=== PATIENT | male | born 1950 | race Caucasian/White ===

== ENCOUNTER 2021-03-26 07:27 | Emergency (ER) | payer OTHER ==
[~2021-03-26] VITALS: Ht 182.9 cm; Wt 127.0 kg
[2021-03-26 08:08] LABS: Basophils # (auto) 0.2 10 ^3/uL (0-0.2); Basophils % (auto) 2.4 % (0.0-2.0); Eosinophils # (auto) 0.2 10 ^3/uL (0-0.8); Eosinophils % (auto) 2.1 % (0.0-7.0); Hematocrit 46.6 % (41.0-53.0); Hemoglobin 16.1 g/dL (13.5-17.5); Lymphocytes # (auto) 1.7 10 ^3/uL (0.4-5.4); Lymphocytes % (auto) 17.9 % (10.0-50.0); Mean Corpuscular Hemoglobin 31.7 pg (28.0-32.0); Mean Corpuscular Hgb Conc. 34.6 g/dL (32.0-36.0); Mean Corpuscular Volume 91.5 fL (80.0-100.0); Monocytes # (auto) 0.5 10 ^3/uL (0-1.3); Monocytes % (auto) 5.5 % (0.0-12.0); Neutrophils # (auto) 6.8 10 ^3/uL (1.6-8.6); Neutrophils % (auto) 72.1 % (37.0-80.0); Nucleated Red Blood Cells % 0.1 %; Red Blood Cells 5.09 10^6/uL (4.5-5.90); Red Cell Distribution Width 13.9 % (11.8-14.3); White Blood Cell 9.4 10^3/uL (4.4-10.8)
[2021-03-26 08:15] LABS: Albumin 3.3 g/dL (3.4-5.0); Calcium 9.4 mg/dL (8.5-10.1); Potassium 4.1 mmol/L (3.5-5.1)
[2021-03-26 08:20] LABS: BUN/Creatinine Ratio 9.6; Bilirubin, Total 0.6 mg/dL (0.2-1.0)
[2021-03-26 08:28] LABS: Urine Bacteria NONE SEEN /hpf (None Seen); Urine Blood Negative /uL (Negative); Urine Mucus FEW (None Seen); Urine WBC 1 /hpf (0 - 3)
[2021-03-26] MEDS ORDERED: HYDROcodone-ACET 10/325MG TAB PO ONE (09:15)
[2021-03-26 09:45] VITALS: BP 155/107
== END 2021-03-26 09:36 | disposition home or self-care (01) ==
LOC: ER 07:27
DX: G89.4 Chronic pain syndrome (principal); R10.32 Left lower quadrant pain; E46 Unspecified protein-calorie malnutrition; I10 Essential (primary) hypertension; E11.9 Type 2 diabetes mellitus without complications; Z68.38 Body mass index [BMI] 38.0-38.9, adult
CPT/HCPCS: 36415; 80053; 81001; 85025

== ENCOUNTER 2023-05-26 08:32 | Inpatient (IN) | payer OTHER ==
[~2023-05-26] VITALS: Ht 182.9 cm; Wt 39.6 kg
[~2023-05-26 08:32] MED LIST: APIX5TAB PO; ATOR-47 PO; DULO60CA41 PO; GABA-1250 PO; INSU1INJ15 SC; INSUINJ2 SC; LEVE500T3 PO; LISI20TA56 PO; METF-372 PO; METO-158 PO; NIFE1TAB31 PO; OXYC15TA77 PO; PANT40TA2 PO; PROP40TA6 PO; TADA5TAB PO; TAMS0.4C36 PO
[2023-05-26 09:08] LABS: Basophils # (auto) 0.1 10 ^3/uL (0-0.2); Basophils % (auto) 0.8 % (0.0-2.0); Eosinophils # (auto) 0.2 10 ^3/uL (0-0.8); Hemoglobin 11.5 g/dL (13.5-17.5); Lymphocytes # (auto) 1.1 10 ^3/uL (0.4-5.4); Monocytes # (auto) 0.9 10 ^3/uL (0-1.3); Monocytes % (auto) 8.3 % (0.0-12.0)
[2023-05-26 09:09] LABS: Eosinophils % (auto) 1.9 % (0.0-7.0); Hematocrit 36.1 % (41.0-53.0); Lymphocytes % (auto) 10.5 % (10.0-50.0); Mean Corpuscular Hemoglobin 25.8 pg (28.0-32.0); Mean Corpuscular Volume 80.7 fL (80.0-100.0); Neutrophils # (auto) 8.4 10 ^3/uL (1.6-8.6); Neutrophils % (auto) 78.5 % (37.0-80.0); Red Blood Cells 4.47 10^6/uL (4.5-5.90); Red Cell Distribution Width 16.6 % (11.8-14.3); White Blood Cell 10.7 10^3/uL (4.4-10.8)
[2023-05-26 09:25] LABS: INR 1.12 (0.9-1.15); Partial Thromboplastin Time 31.6 SEC (24.5-34.5); Prothrombin Time 11.7 sec (9.3-11.8)
[2023-05-26 09:27] LABS: Alanine Aminotransferase 11 U/L (7-40); Alkaline Phosphatase 155 U/L (46-116); Anion Gap 5 (5-15); Aspartate Aminotransferase 10 U/L (13-40); BUN/Creatinine Ratio 12.8 (10.0-20.0); Bilirubin, Total 0.7 mg/dL (0.2-1.0); Blood Urea Nitrogen 17 mg/dL (9-23); Calcium 8.9 mg/dL (8.5-10.1); Carbon Dioxide 28 mmol/L (20-30); Chloride 108 mmol/L (98-107); Glucose 284 mg/dL (74-106); Potassium 5.2 mmol/L (3.5-5.1); Sodium 141 mmol/L (136-145); Total Protein 5.7 g/dL (5.7-8.2)
[2023-05-26] MEDS ORDERED: METOPROLOL TARTRATE 50 MG TAB PO ONE (12:30)
[2023-05-26] MEDS ORDERED: FUROSEMIDE 40 MG/4 ML VIAL IV ONE ×2 (12:30→13:45)
[2023-05-26 13:30] VITALS: BP 98/58; TEMP 97.7
[2023-05-26] MEDS ORDERED: ONDANSETRON HCL 4 MG/2 ML VIAL IV PRN (13:30)
[2023-05-26] MEDS ORDERED: DEXTROSE (50%) 50ML SYRG IV PRN (13:30)
[2023-05-26] MEDS ORDERED: NITROGLYCERIN 0.4 MG SL TAB SL PRN (13:30)
[2023-05-26] MEDS ORDERED: OXYCODONE W/ ACETAMINOPHEN 5/325MG TABLET PO PRN (13:30)
[2023-05-26] MEDS ORDERED: ACETAMINOPHEN 325 MG TAB PO PRN (13:30)
[2023-05-26] MEDS ORDERED: MORPHINE SULFATE INJ 2 MG/ml SYRG IV PRN (13:30)
[2023-05-26 13:31] VITALS: PULSE 71; RESP 20; O2SAT 96
[2023-05-26] MEDS ORDERED: InsuLIN REG 1unit/0.01ml Soln (100units/ml) SC SCH (17:00)
[2023-05-26] MEDS ORDERED: ACCU-CHEK COMFORT CURVE STRIP VI SCH (17:00)
[2023-05-26] MEDS ORDERED: FUROSEMIDE 40 MG/4 ML VIAL IV SCH (18:00)
[2023-05-26] MEDS ORDERED: DULoxetine HCL 30 MG CAP PO SCH (22:00)
[2023-05-26] MEDS ORDERED: levETIRAcetam 500 MG TAB PO SCH (22:00)
[2023-05-26] MEDS ORDERED: INSULIN NPH Isophane (HUMAN) 1unit/0.01ml Susp(100units/ml) SC SCH (22:00)
[2023-05-26] MEDS ORDERED: GABAPENTIN 300 MG CAP PO SCH (22:00)
[2023-05-26] MEDS ORDERED: NIFEdipine ER 30 MG TAB PO SCH (22:00)
[2023-05-26] MEDS ORDERED: METOPROLOL TARTRATE 50 MG TAB PO SCH (22:00)
[2023-05-26] MEDS ORDERED: APIXABAN 5 MG TAB PO SCH (22:00)
[2023-05-27] MEDS ORDERED: PANTOPRAZOLE 40 MG TAB PO SCH (10:00)
[2023-05-27] MEDS ORDERED: TAMSULOSIN HYDROCHLORIDE 0.4 MG CAP PO SCH (10:00)
[2023-05-27] MEDS ORDERED: ATORVASTATIN 20 MG TAB PO SCH (10:00)
[2023-05-27] MEDS ORDERED: LISINOPRIL 20 MG TAB PO SCH (10:00)
== END 2023-05-26 18:13 | disposition left against medical advice (07) | DRG 291 ==
LOC: ER 08:32 → TELE 13:32 → UNDODEPER 20:19
PROVIDERS: ADMIT Internal Medicine Geriatric Medicine; ATTEND Internal Medicine Geriatric Medicine
DX: I11.0 Hypertensive heart disease with heart failure (principal); I50.43 Acute on chronic combined systolic (congestive) and diastolic (congestive) heart failure; E11.9 Type 2 diabetes mellitus without complications; I48.91 Unspecified atrial fibrillation; Z53.21 Procedure and treatment not carried out due to patient leaving prior to being seen by health care provider; G89.29 Other chronic pain
CPT/HCPCS: 36415; 71046; 80053; 82962; 83880; 84484; 85025; 85610; 85730; 93005; 99291; G0378

== ENCOUNTER 2024-06-14 09:11 | Inpatient (IN) | payer OTHER ==
[~2024-06-14] VITALS: Ht 182.9 cm; Wt 125.0 kg
[~2024-06-14 09:11] MED LIST changes: -TADA5TAB PO; +TADA5TAB16 PO; -TAMS0.4C36 PO; +TAMS0.4C39 PO
--- NOTE | 2024-06-14 09:58 | ECG ---
[facility] Test Date: 2024-06-14 Test Time: 09:40:06 Pat Name: DENA ROSALES Department: ER Room: Gender: M Acquisition Advisor: GP : [id number] Requested By: NICK JHAVERI Order Number: [id number] Reading MD: Measurements Intervals [place] Rate: 112 P: 0 VA: 0 QRS: 111 QRSD: 91 T: 6 QT: 343 QTc: 469 Interpretive Statements Atrial fibrillation Anterior infarct, old Minimal ST depression, inferior leads Minimal ST elevation, lateral leads Baseline wander in lead(s) V1 Please click the below link to view image of tracing.
[2024-06-14 10:46] LABS: Urine Bacteria None Seen /hpf (None Seen)
[2024-06-14 11:16] LABS: Urine Blood Negative /uL (Negative); Urine Clarity Clear (Clear); Urine Color Light-Yellow (Yellow); Urine Protein, UAD TRACE (Negative); Urine Specific Gravity 1.033 (1.001-1.035); Urine Urobilinogen 2 mg/dL (Negative); Urine WBC <1 /hpf (0 - 3)
[2024-06-14 11:23] LABS: Amphetamine Screen, Urine Neg (NEGATIVE); Barbiturate Scree,Urine Neg (NEGATIVE); Benzodiazephine Screen, Urine Neg (NEGATIVE); Cocaine Screen, Urine Neg (NEGATIVE); Opiate Scree,Urine Neg (NEGATIVE)
[2024-06-14 11:24] LABS: Cannabinoid Screen, Urine Neg (NEGATIVE); Phencyclidine Screen, Urine Neg (NEGATIVE)
[2024-06-14] MEDS: PANTOPRAZOLE 40 MG/10 ML VIAL INJ IV ONE (11:30)
--- NOTE | 2024-06-14 11:49 | DVH ---
Exam: CT CT AB PEL WO CON-NO ORAL OR IV History: mid abdominal pain Comparison Study: ECID on DOS: 08/26/22 Technique: Multidetector spiral CT of the abdomen and pelvis was performed from lung bases to pubic symphysis. Imaging was performed without IV contrast. Axial, coronal and sagittal multiplanar reform ats were obtained from the axial data set by the technologist. Radiation dose : Abdomen/Pelvis: CTDIvol 24 mGy, DLP 1434.83 mGy*cm. Findings: Evaluation of solid organs is limited due to lack of intravenous contrast use. Lung Bases: Small left pleural effusion. Atelectasis and scarring in the lung bases. Trace pericard ial effusion. Mild cardiomegaly. Liver: The liver is normal in size. No focal lesions. Gallbladder and biliary Tree: Sludge and stones in the gallbladder. Spleen: Unremarkable Pancreas: The pancreas is grossly normal in appearance. Adrenal Glands: Unremarkable Kidneys: Right renal cysts. No hydronephrosis or nephrolithiasis. Extrarenal left renal pelvis. Calci fication adjacent to the distal left ureter not felt to be a stone but more likely a vascular calcifi cation. Bladder: Grossly unremarkable for degree of distention. Bowel: The stomach is grossly normal in appearance. Small bowel and colon are normal in caliber and d istribution. Normal appendix is visualized in the right lower quadrant without findings of appendici tis. Ascites: Absent Lymphadenopathy: No mesenteric, retroperitoneal or periportal lymphadenopathy. Abdominal wall and Mesentery: Unremarkable. Vasculature: The visualized abdominal aorta is normal in size and caliber. There is atherosclerotic calcification of the aorta and its branches. Evaluation of abdominal and pelvic vessels is limited d ue to lack of intravenous contrast. Pelvic Organs: Unremarkable Musculoskeletal: Postsurgical and degenerative changes. IMPRESSION: 1. No acute abdominal or pelvic findings. Cholelithiasis. Right renal cyst. Small left pleural effusi on. Consider dedicated chest CT. Radiation optimization: All CT scans at this facility use at least one of these dose optimization bella hniques: Automated exposure control mA and/or kV adjustment per patient size (includes targeted exams where dose is matched to clinical indication) or iterative reconstruction. HS:Y
[2024-06-14 12:00] LABS: Lactic Acid w/Reflex 3.1 mmol/L (0.4-2.0)
[2024-06-14 12:02] LABS: Acetaminophen < 2.0 UG/ML (10.0-20.0); Salicylate < 3.0 mg/dL (-30)
--- NOTE | 2024-06-14 12:05 | ED.PDOC ---
History of Present Illness HPI Comments 74 year old male presents to the ED with chief complaint of abdominal pain and possible Oxycodone OD. Patient's reports that the patient had been restless all night, uncomfortable, and sweaty, however, she had found an empty bottle of Oxycodone this morning right under the bed and the patient is not sure how many pills he had taken of it last night. Patient relays that he also has been experiencing abdominal pain with associated urinary frequency since last night. Patient's BG was noted to be 350 in triage and notes she provided the patient Insulin this morning. Patient denies any fever, chills, N/V/D, chest pain, or SOB. Chief Complaint: Diabetes Time Seen by MD: 12:00 Primary Care Provider: JESUS Reviewed Notes: Nurses Notes, Medications, Allergies Allergies: Coded Allergies: NO KNOWN ALLERGIES (Unverified , 03/26/21) Home Meds Active Scripts Metoprolol Tartrate (Metoprolol Tartrate) 50 Mg Tab, 50 MG PO BID for 30 Days, #60 TAB 3 Refills Prov:MARISOL CURRAN MD 08/26/22 Reported Medications Oxycodone HCl (Oxycontin) 15 Mg Tab, 1 TAB PO [id number] PRN for PAIN SCALE 7 THRU 10 08/26/22 Insulin Regular (Human) (Humulin R U-500 Kwikpen) 500 Unit/Ml Inj, 500 UNIT SC ACHS, INJ 08/25/22 Insulin NPH (Human) (Isophane) (Humulin N) 100 Unit/Ml Inj, 60 UNITS SC BID, INJ 08/25/22 Pantoprazole Sodium Sesquihydr (Protonix) 40 Mg Tab, 20 MG PO DAILY, #30 TAB 08/25/22 Duloxetine Hcl (Cymbalta) 60 Mg Cap, 60 MG PO BID, CAP 08/25/22 Tadalafil (Tadalafil) 5 Mg Tab, 1 TAB PO DAILY 08/25/22 Apixaban Base (ELIQUIS) 5 Mg Tab, 1 TAB PO BID 08/25/22 Levetiracetam (Levetiracetam) 500 Mg Tab, 1 TAB PO BID 08/25/22 Gabapentin (Gabapentin) 300 Mg Cap, 1 CAP PO BID 08/25/22 Tamsulosin Hcl (Tamsulosin Hcl) 0.4 Mg Cap, 1 CAP PO DAILY 08/25/22 Atorvastatin Calcium (ATORVASTATIN CALCIUM) 80 Mg Tab, 1 TAB PO DAILY 08/25/22 Lisinopril (Lisinopril) 20 Mg Tab, 1 TAB PO DAILY 08/25/22 Nifedipine (Nifedipine Er) 30 Mg Tab, 1 TAB PO BID 08/25/22 Propranolol HCl (Propranolol Hydrochloride) 40 Mg Tab, 1 TAB PO BID 08/25/22 Metformin Hydrochloride (Metformin Hcl) 1,000 Mg Tab, 1 TAB PO BID 08/25/22 Information Source: Patient, Spouse Mode of Arrival: Wheelchair Severity: Moderate Timing: Hours Duration: Since onset Prehospital treatment: None Past Medical History PAST MEDICAL HISTORY: AFIB, CAD, DM, High Lipids, HTN Surgical History: PTCA Surgical History (Other): Neck surgery, Spine stimulator Family History Family History: Reviewed,noncontributory to illness Social History Smoker: Non-Smoker Alcohol: Denies ETOH Use Drugs: Denies Drug Use Lives In: Home Constitutional: reports: sweats, others (restless); denies: chills, diaphoresis, fatigue, fever, malaise, weakness EENTM: denies: blurred vision, double vision, ear bleeding, ear discharge, ear drainage, ear pain, ear ringing, eye pain, eye redness, hearing loss, mouth pain, mouth swelling, nasal discharge, nose bleeding, nose congestion, nose pain, photophobia, tearing, throat pain, throat swelling, voice changes, others Respiratory: denies: cough, hemoptysis, orthopnea, SOB at rest, shortness of breath, SOB with excertion, stridor, wheezing, others Cardiovascular: denies: chest pain, dizzy spells, diaphoresis, Dyspnea on exertion, edema, irregular heart beat, left arm pain, lightheadedness, palpitations, PND, syncope, others Gastrointestinal: reports: abdominal pain; denies: abdomen distended, blood streaked bowels, constipated, diarrhea, dysphagia, difficulty swallowing, hematemesis, melena, nausea, poor appetite, poor fluid intake, rectal bleeding, rectal pain, vomiting, others Genitourinary: reports: frequency; denies: burning, dysuria, flank pain, hematuria, incontinence, penile discharge, penile sore, pain, testicle pain, testicle swelling, urgency, others Neurological: denies: dizziness, fainting, headache, left sided numbness, left sided weakness, numbness, paresthesia, pre-existing deficit, right sided numbness, right sided weakness, seizure, speech problems, tingling, tremors, weakness, others Musculoskeletal: denies: back pain, gout, joint pain, joint swelling, muscle pain, muscle stiffness, neck pain, others Integumetry: denies: bruises, change in color, change in hair/nails, dryness, laceration, lesions, lumps, rash, wounds, others Allergic/Immunocompromised: denies: Difficulty Healing, Frequent Infections, Hives, Itching, others Hematologic/Lymphatic: denies: anemia, blood clots, easy bleeding, easy bruising, swollen glands, others Endocrine: denies: excessive hunger, excessive sweating, excessive thirst, excessive urination, flushing, intolerance to cold, intolerance to heat, unexplained weight gain, unexplained weight loss, others Psychiatric: denies: anxiety, bipolar disorder, depression, hopeless, panic disorder, schizophrenia, sleepless, suicidal, others All Other Systems: Reviewed and Negative Physical Exam General Appearance: No Apparent Distress, Obese HEENT: Normal ENT Inspection, PERRL/EOMI Neck: Full Range of Motion, Normal Inspection Respiratory: Lungs Clear, No Accessory Muscle Use, No Respiratory Distress, Normal Breath Sounds Cardiovascular: No Edema, No JVD, Regular Rate/Rhythm Breast Exam: Deferred Gastrointestinal: Soft, Tenderness (Mid abdominal tenderness to palpation. No rebound or guarding.) Genitalia: Deferred Pelvic: Deferred Rectal: Deferred Extremities: Normal inspection, Normal range of motion, Non-tender, Pedal edema Neurologic: Alert (Oriented x4), No Motor Deficits, Normal Affect, Normal Mood, Other (Moves all extremities, no gross focal deficit) Cerebellar Function: NOT DONE Reflexes: NOT DONE Skin: Dry, Normal Color, Warm Lymphatic: NOT DONE Was a procedure done? Was a procedure done?: No Differential Dx Considerations may include: Medication overdose, infection such as UTI, electrolyte imbalance, viral syndrome, cardiac event, among others X-Ray, Labs, Meds, VS Vital Signs Date Time Temp Pulse Resp B/P (MAP) Pulse Ox O2 Delivery O2 Flow Rate FiO2 06/14/24 11:17 106 16 95 Room Air 06/14/24 11:17 98.7 106 16 145/80 (101) 94 98.7 12/9/24 09:40 112 06/14/24 09:16 98.6 124 18 153/101 (118) 96 Lab Test 06/14/24 12:59 06/14/24 11:08 06/14/24 09:38 06/14/24 09:35 Range/Units Lactic Acid Level 3.3 *H 3.1 *H 0.4-2.0 mmol/L Troponin I High Sensitivity 6 6 </=54 ng/L White Blood Count 13.0 H 4.4-10.8 10^3/uL Red Blood Count 5.22 4.5-5.90 10^6/uL Hemoglobin 13.1 L 13.5-17.5 g/dL Hematocrit 40.4 L 41.0-53.0 % Mean Corpuscular Volume 77.2 L 80.0-100.0 fL Mean Corpuscular Hemoglobin 25.1 L 28.0-32.0 pg Mean Corpuscular Hemoglobin Concent 32.5 32.0-36.0 g/dL Red Cell Distribution Width 18.2 H 11.8-14.3 % Platelet Count 253 140-450 10^3/uL Mean Platelet Volume 8.3 6.9-10.8 fL Neutrophils (%) (Auto) 86.3 H 37.0-80.0 % Lymphocytes (%) (Auto) 7.1 L 10.0-50.0 % Monocytes (%) (Auto) 5.9 0.0-12.0 % Eosinophils (%) (Auto) 0.1 0.0-7.0 % Basophils (%) (Auto) 0.6 0.0-2.0 % Neutrophils # (Auto) 11.2 H 1.6-8.6 10 ^3/uL Lymphocytes # (Auto) 0.9 0.4-5.4 10 ^3/uL Monocytes # (Auto) 0.8 0-1.3 10 ^3/uL Eosinophils # (Auto) 0 0-0.8 10 ^3/uL Basophils # (Auto) 0.1 0-0.2 10 ^3/uL Nucleated Red Blood Cells 0.1 % Sodium Level 138 136-145 mmol/L Potassium Level 4.9 3.5-5.1 mmol/L Chloride Level 103 98-107 mmol/L Carbon Dioxide Level 27 20-31 mmol/L Anion Gap 8 5-15 Blood Urea Nitrogen 14 9-23 mg/dL Creatinine 1.25 0.700-1.30 mg/dL Glomerular Filtration Rate Calc 61 >90 mL/min BUN/Creatinine Ratio 11.2 10.0-20.0 Serum Glucose 355 H 74-106 mg/dL Calcium Level 9.8 8.7-10.4 mg/dL Total Bilirubin 1.0 0.2-1.0 mg/dL Aspartate Amino Transferase (AST) 14 13-40 U/L Alanine Aminotransferase (ALT) 12 7-40 U/L Alkaline Phosphatase 104 46-116 U/L B-Type Natriuretic Peptide 390.31 0-100 pg/mL Total Protein 6.9 5.7-8.2 g/dL Albumin 4.4 3.2-4.8 g/dL Salicylates Level < 3.0 -30 mg/dL Acetaminophen Level < 2.0 L 10.0-20.0 UG/ML Urine Color Light-yellow Yellow Urine Clarity Clear Clear Urine pH 7.0 5.0-9.0 Urine Specific [place] 1.033 1.001-1.035 Urine Protein Trace H Negative Urine Ketones 1+ H Negative Urine Blood Negative Negative /uL Urine Nitrite Negative Negative Urine Bilirubin Negative Negative Urine Urobilinogen 2 H Negative mg/dL Urine Leukocyte Esterase Negative Negative /uL Urine RBC 1 0 - 3 /hpf Urine WBC <1 0 - 3 /hpf Urine Squamous Epithelial Cells Few <5 /hpf Urine Bacteria None seen None Seen /hpf Urine Glucose 4+ H Normal mg/dL Urine Opiates Screen Neg NEGATIVE Urine Fentanyl Screen Neg NEGATIVE Urine Barbiturates Screen Neg NEGATIVE Urine Phencyclidine Screen Neg NEGATIVE Urine Amphetamines Screen Neg NEGATIVE Urine Benzodiazepines Screen Neg NEGATIVE Urine Cocaine Screen Neg NEGATIVE Urine Cannabinoids Screen Neg NEGATIVE POC Glucose 350 H 70-106 mg/dl Current Medications Medications (Trade) Dose Ordered Sig/Stephen Route Start Time Stop Time Status Last Admin Pantoprazole Sodium (Protonix) 40 mg ONCE ONCE IV 06/14/24 10:45 06/14/24 10:46 DC 06/14/24 11:30 CT Abd/Pel: Findings: Evaluation of solid organs is limited due to lack of intravenous contrast use. Lung Bases: Small left pleural effusion. Atelectasis and scarring in the lung bases. Trace pericardial effusion. Mild cardiomegaly. Liver: The liver is normal in size. No focal lesions. Gallbladder and biliary Tree: Sludge and stones in the gallbladder. Spleen: Unremarkable Pancreas: The pancreas is grossly normal in appearance. Adrenal Glands: Unremarkable Kidneys: Right renal cysts. No hydronephrosis or nephrolithiasis. Extrarenal left renal pelvis. Calcification adjacent to the distal left ureter not felt to be a stone but more likely a vascular calcification. Bladder: Grossly unremarkable for degree of distention. Bowel: The stomach is grossly normal in appearance. Small bowel and colon are normal in caliber and distribution. Normal appendix is visualized in the right lower quadrant without findings of appendicitis. Ascites: Absent Lymphadenopathy: No mesenteric, retroperitoneal or periportal lymphadenopathy. Abdominal wall and Mesentery: Unremarkable. Vasculature: The visualized abdominal aorta is normal in size and caliber. There is atherosclerotic calcification of the aorta and its branches. Evaluation of abdominal and pelvic vessels is limited due to lack of intravenous contrast. Pelvic Organs: Unremarkable Musculoskeletal: Postsurgical and degenerative changes. IMPRESSION: 1. No acute abdominal or pelvic findings. Cholelithiasis. Right renal cyst. Small left pleural effusion. Consider dedicated chest CT. X-Ray, Labs, Meds, VS Comment 74-year-old male with a history of hypertension, hyperlipidemia, AFib, CAD, diabetes brought in by spouse to evaluate for possible overdose due to diaphoresis and restlessness last night Vitals remarkable for heart rate 124, BP 153/101 Exam remarkable for mid abdominal tenderness to palpation. No rebound or guarding. Rhythm strip independently interpreted by me: Sinus tach, rate 112, no ectopy. CT abdomen and pelvis unremarkable CBC remarkable for WBC 13, differential shows left shift, CMP remarkable for glucose 355, UA remarkable for 4+ glucose Lactate 3.1, repeat 3.3 Patient treated with the following in the ED: 1 L 0.9 normal saline IV bolus, regular insulin 10 units IV, Protonix 40 mg IV, Zosyn 4.5 g IV, vancomycin 1 g IV On re-evaluation, patient is resting comfortably. Heart rate improving. Plan is to admit the patient for lactate trend, IV hydration, glucose control and further evaluation to rule out infection/sepsis. Images Reviewed?: Images reviewed and evaluated by me Time of 1ST Reevaluation: 13:00 Reevaluation 1ST: Unchanged Patient Education/Counseling: Diagnosis, Treatment Family Education/Counseling: Diagnosis, Treatment Sepsis Sepsis Reasesment Focused Exam Sepsis focused exam: focus exam completed (Heart rate improving, blood pressure stable. 30 cc/kilo bolus not administered due to history of CHF), time: (1409) Departure 1 Departure Time of Disposition: 14:08 Impression: Primary Impression: Hyperglycemia Additional Impression: Sepsis Qualified Codes: A41.9 - Sepsis, unspecified organism Disposition: 09 ADMITTED INPATIENT Admit to: Tele Condition: Guarded Critical Care Note Critical Care Time?: Yes (35 min-critical care time only) Critical care comment: Critical care time including multiple bedside re-evaluations, review of lab and imaging studies, and discussion of the case with the admitting provider. Patient is high risk for hemodynamic/metabolic decompensation. Stability Stability form required: No Heart Score Heart Score: Heart Score Response (Comments) Value History N/A 0 EKG N/A 0 Age N/A 0 Risk Factors N/A 0 Troponin N/A 0 Total 0 I personally scribed for NILAM MUHAMMAD MD ([email or web address]) on 06/14/24 at 12:05. Electronically submitted by Pineda Dennis ([email or web address]). I personally scribed for NILAM MUHAMMAD MD ([email or web address]) on 06/14/24 at 12:46. Electronically submitted by Pineda Dennis ([email or web address]). NILAM MUHAMMAD MD Jun 14, 2024 12:05
[2024-06-14 12:07] LABS: Alanine Aminotransferase 12 U/L (7-40); Albumin 4.4 g/dL (3.2-4.8); Alkaline Phosphatase 104 U/L (46-116); Anion Gap 8 (5-15); Aspartate Aminotransferase 14 U/L (13-40); BUN/Creatinine Ratio 11.2 (10.0-20.0); Blood Urea Nitrogen 14 mg/dL (9-23); Calcium 9.8 mg/dL (8.7-10.4); Carbon Dioxide 27 mmol/L (20-31); Chloride 103 mmol/L (98-107); Potassium 4.9 mmol/L (3.5-5.1); Sodium 138 mmol/L (136-145)
[2024-06-14 12:08] LABS: Total Protein 6.9 g/dL (5.7-8.2)
[2024-06-14 12:13] LABS: Glucose 355 mg/dL (74-106)
[2024-06-14 12:30] LABS: Basophils # (auto) 0.1 10 ^3/uL (0-0.2); Basophils % (auto) 0.6 % (0.0-2.0); Eosinophils # (auto) 0 10 ^3/uL (0-0.8); Eosinophils % (auto) 0.1 % (0.0-7.0); Hematocrit 40.4 % (41.0-53.0); Hemoglobin 13.1 g/dL (13.5-17.5); Lymphocytes # (auto) 0.9 10 ^3/uL (0.4-5.4); Lymphocytes % (auto) 7.1 % (10.0-50.0); Mean Corpuscular Hemoglobin 25.1 pg (28.0-32.0); Mean Corpuscular Hgb Conc. 32.5 g/dL (32.0-36.0); Mean Corpuscular Volume 77.2 fL (80.0-100.0); Monocytes # (auto) 0.8 10 ^3/uL (0-1.3); Monocytes % (auto) 5.9 % (0.0-12.0); Neutrophils # (auto) 11.2 10 ^3/uL (1.6-8.6); Neutrophils % (auto) 86.3 % (37.0-80.0); Nucleated Red Blood Cells % 0.1 %; Platelet Count (auto) 253 10^3/uL (140-450); Red Blood Cells 5.22 10^6/uL (4.5-5.90); Red Cell Distribution Width 18.2 % (11.8-14.3)
--- NOTE | 2024-06-14 15:30 | DVH ---
CT brain without contrast CLINICAL INDICATION: Altered mental status FINDINGS: The study was performed in a multidetector scanner. This study performed taking axial imag es from the skull base up to the vertex. Both brain and bone windows are photographed. Dose lowering techniques have been used including automated exposure control and adjustment of mA and /or KV according to patient size. No areas of hemorrhage or edema in the brain parenchyma Cortical sulcal markings are prominent. Symmetric low-density changes in the periventricular white matter. No hydrocephalus. No midline shift. No extra-axial fluid collections On bone windows paranasal sinuses are clear. No lytic or blastic lesions of bone IMPRESSION: 1. No acute intracranial pathology. 2. Atrophy with periventricular leukoencephalopathy Computed Tomographic Radiation Dosimetry Report: Total CTDI vol = 69 mGy Total DLP = 1358 mGy-cm All CT scans at this medical facility are performed using dose modulation techniques as appropriate t o a performed exam including the following: Automated exposure control was utilized; adjustment of the MA and/or KvP according to patient size; a nd use of iterative reconstruction technique.
--- NOTE | 2024-06-14 15:31 | DVH ---
Chest x-ray Technique: AP Comparison: 05/26/2023 CLINICAL INDICATION: Shortness of breath FINDINGS: Heart size is enlarged. Aorta is tortuous. No infiltrates or effusions. IMPRESSION: 1. No acute cardiopulmonary pathology
[2024-06-14] MEDS: InsuLIN REG 1unit/0.01ml Soln (100units/ml) IV ONE (16:00)
[2024-06-14] MEDS: SODIUM CHLORIDE 0.9% 1,000 ML IV ONE (16:02)
[2024-06-14] MEDS: VANCOMYCIN 1GM/250ML KIT 250 ML IV ONE (16:05)
[2024-06-14] MEDS ORDERED: MORPHINE SULFATE INJ 2 MG/ml SYRG IV PRN (16:45)
[2024-06-14] MEDS ORDERED: NITROGLYCERIN 0.4 MG SL TAB SL PRN (16:45)
--- NOTE | 2024-06-14 16:46 | DVHHP2 ---
History of Present Illness Reason for Visit: ALOC History of Present Illness 74-year-old male is brought to the emergency room by his due to altered level of consciousness Evaluation here showed possible sepsis with elevated white count and elevated lactic acid According to the the patient may have taken extra doses of Percocet that he takes for pain They deny fever chills No cough No nausea no vomiting no diarrhea Cardiovascular: AFIB, CAD, HTN Endocrine: Diabetes Review of Systems Neurological: Weakness Allergies: Coded Allergies: NO KNOWN ALLERGIES (Unverified , 03/26/21) Exam Vital Signs Vital Signs Date Time Temp Pulse Resp B/P (MAP) Pulse Ox O2 Delivery O2 Flow Rate FiO2 06/14/24 16:18 99.1 100 15 108/63 (78) 98 99.1 06/14/24 11:17 Room Air General Appearance: Alert, Oriented X3, Cooperative, No acute distress Respiratory: Clear to auscultation, Normal air movement Cardiovascular: Regular rate, Normal S1, Normal S2, No murmurs Abdominal: Normal bowel sounds, Soft, No tenderness Extremities: No edema Labs/Xrays Labs Test 06/14/24 16:09 06/14/24 15:25 06/14/24 12:59 06/14/24 11:08 Range/Units POC Glucose 235 H 70-106 mg/dl Troponin I High Sensitivity 8 </=54 ng/L Lactic Acid Level 3.3 *H 0.4-2.0 mmol/L White Blood Count 13.0 H 4.4-10.8 10^3/uL Red Blood Count 5.22 4.5-5.90 10^6/uL Hemoglobin 13.1 L 13.5-17.5 g/dL Hematocrit 40.4 L 41.0-53.0 % Mean Corpuscular Volume 77.2 L 80.0-100.0 fL Mean Corpuscular Hemoglobin 25.1 L 28.0-32.0 pg Mean Corpuscular Hemoglobin Concent 32.5 32.0-36.0 g/dL Red Cell Distribution Width 18.2 H 11.8-14.3 % Platelet Count 253 140-450 10^3/uL Mean Platelet Volume 8.3 6.9-10.8 fL Neutrophils (%) (Auto) 86.3 H 37.0-80.0 % Lymphocytes (%) (Auto) 7.1 L 10.0-50.0 % Monocytes (%) (Auto) 5.9 0.0-12.0 % Eosinophils (%) (Auto) 0.1 0.0-7.0 % Basophils (%) (Auto) 0.6 0.0-2.0 % Neutrophils # (Auto) 11.2 H 1.6-8.6 10 ^3/uL Lymphocytes # (Auto) 0.9 0.4-5.4 10 ^3/uL Monocytes # (Auto) 0.8 0-1.3 10 ^3/uL Eosinophils # (Auto) 0 0-0.8 10 ^3/uL Basophils # (Auto) 0.1 0-0.2 10 ^3/uL Nucleated Red Blood Cells 0.1 % Sodium Level 138 136-145 mmol/L Potassium Level 4.9 3.5-5.1 mmol/L Chloride Level 103 98-107 mmol/L Carbon Dioxide Level 27 20-31 mmol/L Anion Gap 8 5-15 Blood Urea Nitrogen 14 9-23 mg/dL Creatinine 1.25 0.700-1.30 mg/dL Glomerular Filtration Rate Calc 61 >90 mL/min BUN/Creatinine Ratio 11.2 10.0-20.0 Serum Glucose 355 H 74-106 mg/dL Calcium Level 9.8 8.7-10.4 mg/dL Total Bilirubin 1.0 0.2-1.0 mg/dL Aspartate Amino Transferase (AST) 14 13-40 U/L Alanine Aminotransferase (ALT) 12 7-40 U/L Alkaline Phosphatase 104 46-116 U/L B-Type Natriuretic Peptide 390.31 0-100 pg/mL Total Protein 6.9 5.7-8.2 g/dL Albumin 4.4 3.2-4.8 g/dL Salicylates Level < 3.0 -30 mg/dL Acetaminophen Level < 2.0 L 10.0-20.0 UG/ML Test 06/14/24 09:38 Range/Units Urine Color Light-yellow Yellow Urine Clarity Clear Clear Urine pH 7.0 5.0-9.0 Urine Specific [place] 1.033 1.001-1.035 Urine Protein Trace H Negative Urine Ketones 1+ H Negative Urine Blood Negative Negative /uL Urine Nitrite Negative Negative Urine Bilirubin Negative Negative Urine Urobilinogen 2 H Negative mg/dL Urine Leukocyte Esterase Negative Negative /uL Urine RBC 1 0 - 3 /hpf Urine WBC <1 0 - 3 /hpf Urine Squamous Epithelial Cells Few <5 /hpf Urine Bacteria None seen None Seen /hpf Urine Glucose 4+ H Normal mg/dL Urine Opiates Screen Neg NEGATIVE Urine Fentanyl Screen Neg NEGATIVE Urine Barbiturates Screen Neg NEGATIVE Urine Phencyclidine Screen Neg NEGATIVE Urine Amphetamines Screen Neg NEGATIVE Urine Benzodiazepines Screen Neg NEGATIVE Urine Cocaine Screen Neg NEGATIVE Urine Cannabinoids Screen Neg NEGATIVE Assessment/Plan Assessment/Plan Metabolic encephalopathy Sepsis Leukocytosis Rule out infection History of coronary artery disease Atrial fibrillation Type 2 diabetes, uncontrolled Hypertension Morbid obesity Chronic low back pain Chronic pain Plan Admit to telemetry CT scan of the head is negative Chest x-ray is negative for pneumonia UA is negative for UTI Get blood cultures Broad-spectrum antibiotics empirically Monitor closely Discussed with the at the bedside Full code Plan discussed with: Patient, Spouse My Orders Orders - MARISOL CURRAN MD Procedure Category Date Status Time Chest Xray 1 View XY 06/14/24 Resulted 14:[address] 06/14/24 Resulted 14:44 Date of Service: Jun 14, 2024 Billing Provider: MARISOL CURRAN MD Common Visit Codes: NOT BILLABLE MARISOL CURRAN MD Jun 14, 2024 16:46
[2024-06-14] MEDS: PIPERACILLIN-TAZO 4.5GM 100 ML IV ONE (16:48)
[2024-06-14] MEDS ORDERED: ONDANSETRON HCL 4 MG/2 ML VIAL IV PRN (17:00)
[2024-06-14] MEDS ORDERED: DEXTROSE (50%) 50ML SYRG IV PRN (17:00)
[2024-06-14] MEDS ORDERED: InsuLIN REG 1unit/0.01ml Soln (100units/ml) SC SCH ×2 (17:00→22:00)
[2024-06-14] MEDS ORDERED: ACCU-CHEK COMFORT CURVE STRIP VI SCH (17:00)
[2024-06-14] MEDS ORDERED: ACETAMINOPHEN 325 MG TAB PO PRN (17:00)
[2024-06-14] MEDS ORDERED: HYDROcodone-ACET 5/325MG TAB PO PRN (17:00)
[2024-06-14] MEDS ORDERED: TAMSULOSIN HYDROCHLORIDE 0.4 MG CAP PO SCH (18:00)
[2024-06-14 18:03] VITALS: BP 122/72; PULSE 105; RESP 20; TEMP 98.5; O2SAT 95
[2024-06-15] MEDS ORDERED: PANTOPRAZOLE 40 MG TAB PO SCH (06:00)
== END 2024-06-14 20:21 | disposition left against medical advice (07) | DRG 871 ==
LOC: ER 09:11 → TELE 16:40
PROVIDERS: ADMIT Internal Medicine Geriatric Medicine; ATTEND Internal Medicine Geriatric Medicine
DX: A41.9 Sepsis, unspecified organism (principal); G93.41 Metabolic encephalopathy; I25.10 Atherosclerotic heart disease of native coronary artery without angina pectoris; Z53.29 Procedure and treatment not carried out because of patient's decision for other reasons; E11.65 Type 2 diabetes mellitus with hyperglycemia; I48.91 Unspecified atrial fibrillation; E66.01 Morbid (severe) obesity due to excess calories; G89.29 Other chronic pain; I10 Essential (primary) hypertension; Z79.899 Other long term (current) drug therapy; Z68.37 Body mass index [BMI] 37.0-37.9, adult
CPT/HCPCS: 36415; 70450; 71045; 74176; 80053; 80307; 80329; 81001; 82962; 83605; 83880; 84484; 85025; 87040; 93005; 96365; 96368; 96375; 99291; G0378; J2470; J2543

== ENCOUNTER 2024-10-03 14:08 | Emergency (ER) | payer OTHER, MEDICAID ==
[~2024-10-03] VITALS: Ht 182.9 cm; Wt 136.0 kg
--- NOTE | 2024-10-03 14:41 | ED.PDOC ---
History of present illness HPI Comments 74 year old male accompanied by presents to the ED with chief complaint of hyperglycemia and hypertension. reports that the patient has been experiencing increasing fatigue, weakness, abdominal pain, dizziness, and frequent urination over the past 2 weeks. relays that the patient's blood glucose has been reading in the 390s daily along with blood pressure being very elevated despite medication being provided correctly. Patient denies any chest pain, SOB, N/V/D, or syncope. Chief Complaint: Hyperglycemia Time Seen by MD: 14:38 Primary Care Provider: JESUS History of present illness: Nurses Notes, Medications, Allergies Allergies: Coded Allergies: NO KNOWN ALLERGIES (Unverified , 03/26/21) Home Meds Active Scripts Metoprolol Tartrate (Metoprolol Tartrate) 50 Mg Tab, 50 MG PO BID for 30 Days, #60 TAB 3 Refills Prov:MARISOL CURRAN MD 08/26/22 Reported Medications Oxycodone HCl (Oxycontin) 15 Mg Tab, 1 TAB PO [id number] PRN for PAIN SCALE 7 THRU 10 08/26/22 Insulin Regular (Human) (Humulin R U-500 Kwikpen) 500 Unit/Ml Inj, 500 UNIT SC ACHS, INJ 08/25/22 Insulin NPH (Human) (Isophane) (Humulin N) 100 Unit/Ml Inj, 60 UNITS SC BID, INJ 08/25/22 Pantoprazole Sodium Sesquihydr (Protonix) 40 Mg Tab, 20 MG PO DAILY, #30 TAB 08/25/22 Duloxetine Hcl (Cymbalta) 60 Mg Cap, 60 MG PO BID, CAP 08/25/22 Tadalafil (Tadalafil) 5 Mg Tab, 1 TAB PO DAILY 08/25/22 Apixaban Base (ELIQUIS) 5 Mg Tab, 1 TAB PO BID 08/25/22 Levetiracetam (Levetiracetam) 500 Mg Tab, 1 TAB PO BID 08/25/22 Gabapentin (Gabapentin) 300 Mg Cap, 1 CAP PO BID 08/25/22 Tamsulosin Hcl (Tamsulosin Hcl) 0.4 Mg Cap, 1 CAP PO DAILY 08/25/22 Atorvastatin Calcium (ATORVASTATIN CALCIUM) 80 Mg Tab, 1 TAB PO DAILY 08/25/22 Lisinopril (Lisinopril) 20 Mg Tab, 1 TAB PO DAILY 08/25/22 Nifedipine (Nifedipine Er) 30 Mg Tab, 1 TAB PO BID 08/25/22 Propranolol HCl (Propranolol Hydrochloride) 40 Mg Tab, 1 TAB PO BID 08/25/22 Metformin Hydrochloride (Metformin Hcl) 1,000 Mg Tab, 1 TAB PO BID 08/25/22 Information Source: Patient Mode of Arrival: Wheelchair Timing: Weeks Duration: Since onset Prehospital treatment: None Symptoms: Confusion History of: Diabetes, Insulin use, CVA, Frequent hyperglycemic Associated signs and symptoms: Abdominal Pain Past Medical History PAST MEDICAL HISTORY: AFIB, CAD, CHF, CVA, DM, High Lipids, HTN, SD, Seizures Surgical History: PTCA Family History Family History: Reviewed,noncontributory to illness Social History Smoker: Non-Smoker Alcohol: Denies ETOH Use Drugs: Denies Drug Use Lives In: Home Constitutional: denies: chills, diaphoresis, fatigue, fever, malaise, sweats, weakness, others EENTM: denies: blurred vision, double vision, ear bleeding, ear discharge, ear drainage, ear pain, ear ringing, eye pain, eye redness, hearing loss, mouth pain, mouth swelling, nasal discharge, nose bleeding, nose congestion, nose pain, photophobia, tearing, throat pain, throat swelling, voice changes, others Respiratory: denies: cough, hemoptysis, orthopnea, SOB at rest, shortness of breath, SOB with excertion, stridor, wheezing, others Cardiovascular: denies: chest pain, dizzy spells, diaphoresis, Dyspnea on exertion, edema, irregular heart beat, left arm pain, lightheadedness, palpitations, PND, syncope, others Gastrointestinal: reports: abdominal pain; denies: abdomen distended, blood streaked bowels, constipated, diarrhea, dysphagia, difficulty swallowing, hematemesis, melena, nausea, poor appetite, poor fluid intake, rectal bleeding, rectal pain, vomiting, others Genitourinary: denies: burning, dysuria, flank pain, frequency, hematuria, incontinence, penile discharge, penile sore, pain, testicle pain, testicle swelling, urgency, others Neurological: reports: dizziness, weakness; denies: fainting, headache, left sided numbness, left sided weakness, numbness, paresthesia, pre-existing deficit, right sided numbness, right sided weakness, seizure, speech problems, tingling, tremors, others Musculoskeletal: denies: back pain, gout, joint pain, joint swelling, muscle pain, muscle stiffness, neck pain, others Integumetry: denies: bruises, change in color, change in hair/nails, dryness, laceration, lesions, lumps, rash, wounds, others Allergic/Immunocompromised: denies: Difficulty Healing, Frequent Infections, Hives, Itching, others Hematologic/Lymphatic: denies: anemia, blood clots, easy bleeding, easy bruising, swollen glands, others Endocrine: reports: excessive urination, others (Hyperglycemia); denies: excessive hunger, excessive sweating, excessive thirst, flushing, intolerance to cold, intolerance to heat, unexplained weight gain, unexplained weight loss Psychiatric: denies: anxiety, bipolar disorder, depression, hopeless, panic disorder, schizophrenia, sleepless, suicidal, others All Other Systems: Reviewed and Negative Physical Exam General Appearance: Moderate Distress, Obese HEENT: Normal ENT Inspection, PERRL/EOMI Neck: Full Range of Motion, Non-Tender, Normal, Normal Inspection Respiratory: Chest Non-Tender, Lungs Clear, No Accessory Muscle Use, No Respiratory Distress, Normal Breath Sounds Cardiovascular: No Edema, No JVD, No Murmur, No Gallop, Normal Peripheral Pulses, Regular Rate/Rhythm Breast Exam: Deferred Gastrointestinal: No Organomegaly, Non Tender, No Pulsatile Mass, Normal Bowel Sounds, Soft Genitalia: Deferred Pelvic: Deferred Rectal: Deferred Extremities: No calf tenderness, Normal capillary refill, Pedal edema Musculoskeletal : Apperance: Normal Neurologic: Alert, employee relations assistant II-XII nml as Tested, No Motor Deficits, Normal Affect, Normal Mood, No Sensory Deficits Cerebellar Function: NOT DONE Reflexes: NOT DONE Skin: Dry, Normal Color, Warm Peripheral Pulses: 3+ Radial (R), 3+ Radial (L) Lymphatic: No Adenopathy Was a procedure done? Was a procedure done?: No Differential Diagnosis (DM) Differential Diagnosis: Dehydration, Electrolyte Abnormality X-Ray, Labs, Meds, VS Vital Signs Date Time Temp Pulse Resp B/P (MAP) Pulse Ox O2 Delivery O2 Flow Rate FiO2 10/03/24 16:11 140/89 10/03/24 15:55 100 20 97 Room Air 10/03/24 15:55 97.9 100 20 140/89 (106) 97 97.9 10/03/24 14:19 97.3 83 18 128/73 (91) 97 97.3 Lab Test 10/03/24 15:16 10/03/24 14:17 Range/Units White Blood Count 8.1 4.4-10.8 10^3/uL Red Blood Count 5.46 4.5-5.90 10^6/uL Hemoglobin 13.5 13.5-17.5 g/dL Hematocrit 41.3 41.0-53.0 % Mean Corpuscular Volume 75.6 L 80.0-100.0 fL Mean Corpuscular Hemoglobin 24.7 L 28.0-32.0 pg Mean Corpuscular Hemoglobin Concent 32.6 32.0-36.0 g/dL Red Cell Distribution Width 16.9 H 11.8-14.3 % Platelet Count 185 140-450 10^3/uL Mean Platelet Volume 8.1 6.9-10.8 fL Neutrophils (%) (Auto) 67.2 37.0-80.0 % Lymphocytes (%) (Auto) 16.3 10.0-50.0 % Monocytes (%) (Auto) 15.4 H 0.0-12.0 % Eosinophils (%) (Auto) 0.5 0.0-7.0 % Basophils (%) (Auto) 0.6 0.0-2.0 % Neutrophils # (Auto) 5.4 1.6-8.6 10 ^3/uL Lymphocytes # (Auto) 1.3 0.4-5.4 10 ^3/uL Monocytes # (Auto) 1.3 0-1.3 10 ^3/uL Eosinophils # (Auto) 0 0-0.8 10 ^3/uL Basophils # (Auto) 0 0-0.2 10 ^3/uL Nucleated Red Blood Cells 0.1 % Sodium Level 137 136-145 mmol/L Potassium Level 4.3 3.5-5.1 mmol/L Chloride Level 99 98-107 mmol/L Carbon Dioxide Level 31 20-31 mmol/L Anion Gap 7 5-15 Blood Urea Nitrogen 21 9-23 mg/dL Creatinine 1.30 0.700-1.30 mg/dL Glomerular Filtration Rate Calc 58 >90 mL/min BUN/Creatinine Ratio 16.2 10.0-20.0 Serum Glucose 363 H 74-106 mg/dL Calcium Level 9.9 8.7-10.4 mg/dL Troponin I High Sensitivity 9 </=54 ng/L B-Type Natriuretic Peptide 340.58 0-100 pg/mL POC Glucose 389 H 70-106 mg/dl Current Medications Medications (Trade) Dose Ordered Sig/Stephen Route Start Time Stop Time Status Last Admin Furosemide (Lasix Injection) 40 mg ONCE ONCE IV 10/03/24 15:30 10/03/24 15:31 DC 10/03/24 16:11 Patient alert. Generalized weakness. Blood sugar elevated. Vitals stable. He is answering questions. Moving all extremities. Possible TIA. History of CVA. Establish intravenous access. Was given insulin. History of CHF. Was given Lasix. EKG reviewed does not show any acute process. Reviewed his history. Explained to the patient. Continue cardiac monitoring. BNP elevated. Blood sugar elevated. CT of the head reviewed does not show any acute changes. Chest x-ray reviewed does not show any acute changes. Time of 1ST Reevaluation: 15:38 Reevaluation 1ST: Unchanged Patient Education/Counseling: Diagnosis, Treatment Family Education/Counseling: Diagnosis, Treatment Additional Information Previous visit documents reviewed: 06/14/24 for Hyperglycemia The following tests were ordered, and results were reviewed by me: Additional Information was gathered from interviewing the following independent historians: I reviewed and agreed with the following test results read by other providers: I discussed treatment and results with medical personnel and: Patient and Comprehensive systems review obtained and negative except for what is stated in the HPI. Departure 1 Departure Time of Disposition: 15:21 Impression: Primary Impression: Uncontrolled diabetes mellitus Qualified Codes: E13.65 - Other specified diabetes mellitus with hyperglycemia Additional Impressions: TIA (transient ischemic attack) CHF (congestive heart failure) Qualified Codes: I50.43 - Acute on chronic combined systolic (congestive) and diastolic (congestive) heart failure Disposition: ADMITTED INPATIENT Admit to: Med Surg Condition: Guarded Critical Care Note Critical Care Time?: No Stability Stability form required: No Heart Score Heart Score: Heart Score Response (Comments) Value History Highly Suspicious 2 EKG Normal 0 Age >65 2 Risk Factors >3 or Hx ASHD 2 Troponin Normal limit 0 Total 6 I personally scribed for KAITLYN RODRIGUEZ MD ([email or web address]) on 10/03/24 at 14:41. Electronically submitted by Pineda Dennis ([email or web address]). KAITLYN RODRIGUEZ MD Oct 03, 2024 14:41
--- NOTE | 2024-10-03 15:22 | DVH ---
EXAM: XY CHEST PORTABLE HISTORY: sob COMPARISON: XY CHEST XRAY 1 VIEW on DOS: 06/14/24, CHEST PORTABLE on DOS: 08/26/22, CXRP on DOS: 3 TECHNIQUE: Portable AP view of the chest was performed. FINDINGS: The left costophrenic angle is not imaged here. No pneumothorax, consolidative infiltrates, or pulmonary edema. The heart is borderline enlarged. There are post operative changes of ACDF and s walt cord stimulator. IMPRESSION: 1. No acute intrathoracic process. 2. The left costophrenic angle is not imaged here.
[2024-10-03 15:31] LABS: Basophils # (auto) 0 10 ^3/uL (0-0.2); Basophils % (auto) 0.6 % (0.0-2.0); Eosinophils # (auto) 0 10 ^3/uL (0-0.8); Hemoglobin 13.5 g/dL (13.5-17.5); Lymphocytes # (auto) 1.3 10 ^3/uL (0.4-5.4)
[2024-10-03 15:32] LABS: Eosinophils % (auto) 0.5 % (0.0-7.0); Hematocrit 41.3 % (41.0-53.0); Lymphocytes % (auto) 16.3 % (10.0-50.0); Mean Corpuscular Hemoglobin 24.7 pg (28.0-32.0); Mean Corpuscular Hgb Conc. 32.6 g/dL (32.0-36.0); Mean Corpuscular Volume 75.6 fL (80.0-100.0); Monocytes # (auto) 1.3 10 ^3/uL (0-1.3); Monocytes % (auto) 15.4 % (0.0-12.0); Neutrophils # (auto) 5.4 10 ^3/uL (1.6-8.6); Neutrophils % (auto) 67.2 % (37.0-80.0); Nucleated Red Blood Cells % 0.1 %; Platelet Count (auto) 185 10^3/uL (140-450); Red Blood Cells 5.46 10^6/uL (4.5-5.90); Red Cell Distribution Width 16.9 % (11.8-14.3); White Blood Cell 8.1 10^3/uL (4.4-10.8)
[2024-10-03 15:41] LABS: Chloride 99 mmol/L (98-107); Potassium 4.3 mmol/L (3.5-5.1); Sodium 137 mmol/L (136-145)
[2024-10-03 15:42] LABS: Anion Gap 7 (5-15)
[2024-10-03 15:43] LABS: Calcium 9.9 mg/dL (8.7-10.4)
[2024-10-03 15:47] LABS: BUN/Creatinine Ratio 16.2 (10.0-20.0); Blood Urea Nitrogen 21 mg/dL (9-23)
[2024-10-03 15:55] VITALS: BP 140/89; PULSE 100; RESP 20; TEMP 97.9; O2SAT 97
[2024-10-03 15:59] LABS: Carbon Dioxide 31 mmol/L (20-31); Glucose 363 mg/dL (74-106)
[2024-10-03] MEDS: FUROSEMIDE 40 MG/4 ML VIAL IV ONE (16:11)
--- NOTE | 2024-10-03 16:55 | DVH ---
EXAM: CT HEAD WITHOUT CONTRAST INDICATION: tia TECHNIQUE: CT of the head without intravenous contrast. Radiation Dose : 1. Head: CT Dose: CTDI volume is 67.11 mGy. Dose-length product is 1322.26 mGy*cm The dose indicators for CT are the volume Computed Tomography (CT) Dose Index (CTDIvol) and the Dose Length Product (DLP), and are measured in units of mGy and mGy-cm, respectively. These indicators are not patient dose, but values generated from the CT scanner acquisition factors. The report includes radiation exposure data for exposures received during this examination. COMPARISON: CT HEAD WITHOUT CONTRAST on DOS: 06/14/24 FINDINGS: There is no evidence of acute intracranial hemorrhage, extra-axial collection, mass effect, midline s hift, herniation or hydrocephalus. The ventricles, sulci and cisterns are age appropriate. The lemus-white differentiation is intact. Patchy periventricular and subcortical white matter hypoattenuation is nonspecific but may be related to small vessel ischemic disease. The visualized paranasal sinuses and mastoid air cells are clear. The surrounding soft tissues and osseous structures are unremarkable. IMPRESSION: 1. No acute intracranial abnormality. 2. Chronic microvascular ischemic changes Radiation optimization: All CT scans at this facility use at least one of these dose optimization bella hniques: automated exposure control mA and/or kV adjustment per patient size (includes targeted exam s where dose is matched to clinical indication) or iterative reconstruction.
== END 2024-10-03 21:11 | disposition left against medical advice (07) ==
LOC: ER 14:08
DX: E11.65 Type 2 diabetes mellitus with hyperglycemia (principal); G45.9 Transient cerebral ischemic attack, unspecified; I11.0 Hypertensive heart disease with heart failure; I50.9 Heart failure, unspecified; E78.5 Hyperlipidemia, unspecified; I48.91 Unspecified atrial fibrillation; I25.10 Atherosclerotic heart disease of native coronary artery without angina pectoris; I25.2 Old myocardial infarction; Z79.899 Other long term (current) drug therapy; Z79.84 Long term (current) use of oral hypoglycemic drugs; Z79.4 Long term (current) use of insulin; Z79.01 Long term (current) use of anticoagulants
CPT/HCPCS: 36415; 70450; 71045; 80048; 82947; 83880; 84484; 85025; 96374; 99285; J1940; 82962

== ENCOUNTER 2025-01-14 19:58 | Inpatient (IN) | payer MEDICAID, OTHER ==
[~2025-01-14] VITALS: Ht 177.8 cm; Wt 136.5 kg
[2025-01-14] MEDS: NALOXONE HCL 1MG/ML 2ML SYRINGE IV ONE (20:29)
--- NOTE | 2025-01-14 20:30 | ED.PDOC ---
HPI (NEURO) HPI Comments HPI: 75 year old male brought in by presents to the emergency department with a chief complaint of possible overdose onset last night around 22:00. states she is concerned patient overdosed on Oxycodone and Percocet, has been lethargic since last night. Patient noticed patient was altered, screaming, not wanting to drink water. No other symptoms or modifying factors present at this time. Initial Vitals BP: 144/100 HR: 96 RR: 12 O2: 96% Past Medical History: CAD, CHF, CVA, ND, HTN, HLD, DM, a-fib, chronic back pain Past Surgical History: back surgery, cardiac stents Social History: Denies ETOH, smoking, and drug use. Medications: eliquis, gabapentin, Keppra, lisinopril, atorvastatin, omeprazole, carvedilol Allergies: NKDA HPI: Poor Historian. denies any fall or trauma. states patient is compliant with all his medications including Eliquis everyday. Onset of symptoms last night. REVIEW OF SYSTEMS: CONSTITUTIONAL: Denies acute: fever, diaphoresis, chills, generalized weakness. HEAD: Denies acute: headache, photophobia Eyes: Denies acute: Double vision, vision loss, eye pain, eye discharge. EARS: Denies acute: tinnitus, hearing loss, ear discharge, ear pain, THROAT: Denies acute: sore throat, swelling, difficulty swallowing , pain with swallowing, change in voice. NECK: Denies acute: neck pain, neck swelling, stiff neck. HEART: Denies acute : chest pain, palpitations, LUNGS: Denies acute: SOB, wheezing, cough, hemoptysis ABDOMEN: Denies acute: abdominal pain, Nausea, Vomiting, diarrhea, melena , hematemesis, hematochezia SKIN: Denies acute: rash, redness, lesions, itchiness. EXTREMITIES: Denies acute: calf pain, numbness, tingling, weakness, denies pain in extremity. Denies acute: Low back pain. Neuro: Denies acute: focal neurological deficit, motor or sensory focal neurological deficit, tremors, seizure like activity, confusion, dizziness, change in mental status, loss of bowel or bladder function, cauda equina like symptoms. : Denies acute: dysuria, hematuria, flank pain, increase in urinary frequency. PSYCH: Denies acute: hallucination, suicidal ideation, homicidal ideation. FEMALE: Denies acute: abnormal vaginal bleeding, foul odor, unusual discharge. PHYSICAL EXAM: General: ----mild---acute distress, awake and alert. Head: normocephalic, atraumatic. Neck: supple, trachea is midline, no swelling. Throat: Normal phonation. Eyes:, no erythema, no purulent discharge, no proptosis, no icterus. Heart: Irregular rate and rhythm consistent with atrial fibrillation with RVR. no significant murmur appreciated. Lungs: no apparent respiratory distress, No wheezing, no rhonchi, no crackles. No stridors Clear to auscultation bilaterally. Abdomen: non tender to palpation, non distended, soft, no guarding, no rebound, + bowel sounds. Obese Neuro: Awake, arousable to painful stimuli. Skin: no petechia, no purpura, no cyanosis, slightly-pale, not jaundice. Lower extremities: --2/4 bilateral - Pitting edema no deformity, no focal swelling, no calf TTP. Makes eye contact. Face: no apparent facial droop. PERRLA, ED COURSE: DISCLAIMER: This medical document was created using an electronic medical record system with voice recognition software and computerized dictation system. Although this document has been carefully reviewed, there might still be some phonetic and typographical errors. Occasional wrong-word or "sound-alike" substitutions may have occurred due to the inherent limitations of voice recognition software. These areas are purely typographical due to imperfections of the software programs and do not reflect any compromise in the patient's medical care. Please read the chart carefully and recognize, using context, where these substitutions have occurred. Time Seen by MD: 20:15 Primary Care Provider: JESUS Reviewed Notes: Medications, Allergies Information Source: Patient, Spouse Mode of Arrival: Wheelchair Severity: Moderate Timing: Hours Duration: Since onset Prehospital treatment: Pain Meds Circumstances: Spontaneous Associated Signs and Symptoms: Altered Mental Status Past Medical History PAST MEDICAL HISTORY: AFIB, CAD, CHF, CVA, DM, High Lipids, HTN, ND, Seizures Surgical History: PTCA Surgical History (Other): back surgery Family History Family History: Reviewed,noncontributory to illness Social History Smoker: Non-Smoker Alcohol: Denies ETOH Use Drugs: Denies Drug Use Lives In: Home Was a procedure done? Was a procedure done?: No Differential Diagnosis (SZ) Seizure: N/A General Weakness: Other (DDX include CVA, TGA, cerebellar ischemia/infarct, carotid stenosis, Intracranial mass/infection/bleed, encephalopathy, electrolyte abnormality, thyroid disease, hydrocephalus, hypoglycemia, drug toxicity, cardiac arrhythmia, seizure, infection in the elderly, Hyperammonemia., kidney failure., sepsis.) X-Ray, Labs, Meds, VS Vital Signs Date Time Temp Pulse Resp B/P (MAP) Pulse Ox O2 Delivery O2 Flow Rate FiO2 01/14/25 22:28 136 147/96 01/14/25 22:21 133 147/96 01/14/25 22:00 97.5 136 20 147/96 (113) 94 97.5 01/14/25 21:31 144 01/14/25 21:28 148 183/103 01/14/25 21:25 97.3 154 19 183/103 (129) 94 97.3 01/14/25 21:25 154 19 94 Room Air* 0 21 01/14/25 20:31 98.2 80 16 151/89 (109) 96 98.2 01/14/25 20:31 64 12 144/100 (115) 96 Lab Test 01/14/25 22:26 01/14/25 20:46 01/14/25 20:33 Range/Units Troponin I High Sensitivity 6 7 </=54 ng/L Blood Gas Specimen Type Arterial Blood Gas Sample Site Right radial Blood Gas Patient Temperature 37.0 Arterial Blood Date Drawn [id number] Arterial Blood pH 7.514 H 7.350-7.450 Arterial Blood Partial Pressure CO2 25.4 L 35.0-48.0 mmHg Arterial Blood Partial Pressure O2 74.6 L 83.0-108.0 mmHg Arterial Blood HCO3 20.0 L 21.0-28.0 mmol/L Arterial Blood Oxygen Saturation 96.3 94.0-98.0 % Arterial Blood Base Excess -1.3 -2.0-3.0 mmol/L Arterial Blood Oxyhemoglobin 94.3 94.0-98.0 % Arterial Blood Carboxyhemoglobin 1.9 H 0.5-1.5 % Arterial Blood Methemoglobin 0.2 0.0-1.5 % Saqib Test Yes Blood Gas Total Hemoglobin 14.40 13.5-17.5 g/dL Blood Gas Modality Room air Blood Gas Spontaneous Rate 24 FiO2 % 21.0 White Blood Count 14.0 H 4.4-10.8 10^3/uL Red Blood Count 5.56 4.5-5.90 10^6/uL Hemoglobin 13.3 L 13.5-17.5 g/dL Hematocrit 41.7 41.0-53.0 % Mean Corpuscular Volume 74.9 L 80.0-100.0 fL Mean Corpuscular Hemoglobin 24.0 L 28.0-32.0 pg Mean Corpuscular Hemoglobin Concent 32.0 32.0-36.0 g/dL Red Cell Distribution Width 18.8 H 11.8-14.3 % Platelet Count 189 140-450 10^3/uL Mean Platelet Volume 7.7 6.9-10.8 fL Neutrophils (%) (Auto) 84.9 H 37.0-80.0 % Lymphocytes (%) (Auto) 7.7 L 10.0-50.0 % Monocytes (%) (Auto) 5.9 0.0-12.0 % Eosinophils (%) (Auto) 1.1 0.0-7.0 % Basophils (%) (Auto) 0.4 0.0-2.0 % Neutrophils # (Auto) 11.9 H 1.6-8.6 10 ^3/uL Lymphocytes # (Auto) 1.1 0.4-5.4 10 ^3/uL Monocytes # (Auto) 0.8 0-1.3 10 ^3/uL Eosinophils # (Auto) 0.2 0-0.8 10 ^3/uL Basophils # (Auto) 0.1 0-0.2 10 ^3/uL Nucleated Red Blood Cells 0.0 % Sodium Level 143 136-145 mmol/L Potassium Level 3.8 3.5-5.1 mmol/L Chloride Level 108 H 98-107 mmol/L Carbon Dioxide Level 24 20-31 mmol/L Anion Gap 11 5-15 Blood Urea Nitrogen 13 9-23 mg/dL Creatinine 1.11 0.700-1.30 mg/dL Glomerular Filtration Rate Calc 70 >90 mL/min BUN/Creatinine Ratio 11.7 10.0-20.0 Serum Glucose 146 H 74-106 mg/dL Lactic Acid Level 1.0 0.4-2.0 mmol/L Calcium Level 9.8 8.7-10.4 mg/dL Magnesium Level 2.0 1.6-2.6 mg/dL Total Bilirubin 0.8 0.2-1.0 mg/dL Aspartate Amino Transferase (AST) 14 13-40 U/L Alanine Aminotransferase (ALT) < 9 7-40 U/L Alkaline Phosphatase 110 46-116 U/L B-Type Natriuretic Peptide 265.01 0-100 pg/mL Total Protein 6.9 5.7-8.2 g/dL Albumin 4.6 3.2-4.8 g/dL Acetaminophen Level < 2.0 L 10.0-20.0 UG/ML Plasma/Serum Blood Alcohol < 3.0 <10 mg/dL Microbiology Date/Time Source Procedure Growth Status 01/14/25 22:26 Blood Blood Culture - Final NO GROWTH AFTER 5 DAYS OF INCUBATION. [facility] 01/14/25 22:10 Blood Blood Culture - Final NO GROWTH AFTER 5 DAYS OF INCUBATION. [place] [address] Ph: [phone] DIAGNOSTIC IMAGING Diagnostic Imaging Report : [id number] Signed PATIENT: DENA ROSALES ACCT: [id number] UNIT: [id number] : 1950 LOC: ER ROOM / BED: / AGE / SEX: 75 / M ADM STATUS: REG ER SERVICE 17 ORDERING PHYSICIAN: SABRA MCKENNA DO PROCEDURE(s): CXRP - CHEST PORTABLE REASON: ALOC, AFIB, ORDER NUMBER(s): [id number], ACCESSION NUMBER(s): [id number] CHEST RADIOGRAPH Indication: ALOC, AFIB, Technique: Single frontal view of the chest was obtained Comparison: XY CHEST PORTABLE on DOS: 10/03/24, XY CHEST XRAY 1 VIEW on DOS: 06/14/24, CHEST PORTABLE on DOS: 08/26/22 FINDINGS: Lines and Tubes: None Lungs: No focal consolidation. Pleura: No effusion. No pneumothorax. Cardiomediastinal contours: [id number] cardiomegaly. Bones: No acute osseous abnormality. Cervical fixation hardware is noted. IMPRESSION: [id number]-[id number] cardiomegaly . Otherwise, no evidence for acute cardiopulmo nary disease. ATED BY: CORINNA BRAXTON DO DICTATED DATE/TIME: 01/14/252113 SIGNED BY: CORINNA BRAXTON DO SIGNED DATE/TIME: 01/14/252113 CC: [place] [address] Ph: [phone] DIAGNOSTIC IMAGING Diagnostic Imaging Report : [id number] Signed PATIENT: DENA ROSALES ACCT: [id number] UNIT: [id number] : 1950 LOC: OVERFLOW ROOM / BED: [address] [place] [address] AGE / SEX: 75 / M ADM STATUS: ADM IN SERVICE 6 ORDERING PHYSICIAN: JENNIFER FRAIRE DNP PROCEDURE(s): HWOCT - HEAD WITHOUT CONTRAST REASON: confusion ORDER NUMBER(s): [id number], ACCESSION NUMBER(s): [id number] EXAM: CT HEAD WITHOUT CONTRAST INDICATION: confusion TECHNIQUE: CT of the head without intravenous contrast. Radiation Dose : 1. Head: CT Dose: CTDI volume is 68.06 mGy. Dose-length product is 4427.78 mGy*cm The dose indicators for CT are the volume Computed Tomography (CT) Dose Index (CTDIvol) and the Dose Length Product (DLP), and are measured in units of mGy and mGy-cm, respectively. These indicators are not patient dose, but values generated from the CT scanner acquisition factors. The report includes radiation exposure data for exposures received during this examination. COMPARISON: CT HEAD WITHOUT CONTRAST on DOS: 10/03/24, CT HEAD WITHOUT CONTRAST on DOS: 06/14/24 FINDINGS: There is no evidence of acute intracranial hemorrhage, extra-axial collection, mass effect, midline shift, herniation or hydrocephalus. Increased prominence of the ventricles, sulci and cisterns is consistent with the sequelae of atrophic cortical volume loss. The lemus-white differentiation is intact. Moderate diffuse confluent periventricular and subcortical white matter hypoattenuation is nonspecific but may be related to small vessel ischemic disease. The visualized paranasal sinuses and mastoid air cells are clear. 9 mm calcific excrescence arising from the right frontal convexity inner table of the calvarium. The surrounding soft tissues and osseous structures are otherwise unremarkable. IMPRESSION: 1. No acute intracranial abnormality. 2. Chronic sequelae of microvascular disease and atrophic cortical volume loss. Radiation optimization: All CT scans at this facility use at least one of these dose optimization techniques: automated exposure control mA and/or kV adjustment per patient size (includes targeted exams where dose is matched to clinical indication) or iterative reconstruction. ATED BY: EDER STARR MD DICTATED DATE/TIME: 01/15/25350 SIGNED BY: EDER STARR MD SIGNED DATE/TIME: 01/15/25350 CC: Time of 1ST Reevaluation: 20:45 Reevaluation 1ST: Unchanged Time of 2ND Reevaluation: 21:03 (Patient was given Narcan and he became much more arousable back to his baseline.) Patient Education/Counseling: Diagnosis, Treatment Family Education/Counseling: Diagnosis, Treatment Comments MDM: patient presented with the above HPI.---ALOC---workup was initiated. patient was found with the above mentioned diagnosis. the following medications were ordered: please refer to order lists of meds and tests obtained by myself Dr. Mckenna. Patient ED course and VS have been stabilized. Patient has been reassessed in the ED and remained in a stable condition. Pertinent incidental findings were discussed with the patient and/or family. Patient/family voices understanding and is agreeable with plan. Patient has been observed in the ED adequate length of time to insure improvement/stability. Escalation of care considered: Consideration of escalation to observation or admission Patient was given Ativan, Rocephin, blood pressure control Lopressor 5 mg for AFib with RVR, Narcan Patient was ADMITTED to the medicine team for further evaluation and treatment of their presentation. All the reports of any imaging studies that were ordered by myself were reviewed by myself. Departure 1 Departure Time of Disposition: 20:39 Impression: Primary Impression: Atrial fibrillation with RVR Additional Impressions: Altered level of consciousness Opiate overdose Hypoxemia Disposition: ADMITTED INPATIENT Admit to: Tele Condition: Guarded e-Prescriptions Metoprolol Tartrate (Metoprolol Tartrate) 50 Mg Tab 50 MG PO BID for 30 Days, #60 TAB 3 Refills Prov: LATONYA ALONSO MD 01/18/25 Apixaban Base (ELIQUIS) 5 Mg Tab 1 TAB PO BID, #60 TAB Prov: LATONYA ALONSO MD 01/18/25 Nifedipine (Nifedipine Er) 30 Mg Tab 1 TAB PO BID, #60 TAB Prov: LATONYA ALONSO MD 01/18/25 Discharged With: Self Critical Care Note Critical Care Time?: Yes (1 hr-critical care time only) Heart Score Heart Score: Heart Score Response (Comments) Value History Moderate Suspicious [address]-Deviation 2 Age >65 2 Risk Factors >3 or Hx ASHD 2 Troponin Normal limit 0 Total 7 I personally scribed for SABRA MCKENNA DO ([email or web address]) on 01/14/25 at 20:30. Electronically submitted by Kinsey Hernandez ([email or web address]). I personally scribed for SABRA MCKENNA DO ([email or web address]) on 01/14/25 at 20:54. Electronically submitted by Kinsey Hernandez ([email or web address]). I personally scribed for SABRA MCKENNA DO ([email or web address]) on 01/14/25 at 21:42. El ectronically submitted by Kinsey Hernandez ([email or web address]). I personally scribed for SABRA MCKENNA DO ([email or web address]) on 01/15/25 at 21:33. Electro nically submitted by Herve Cohen ([email or web address]). I personally scribed for SABRA MCKENNA DO ([email or web address]) on 01/15/25 at 21:35. [place] ctronically submitted by Herve Cohen ([email or web address]). SABRA MCKENNA DO Jan 14, 2025 20:30
[2025-01-14 20:48] LABS: Hematocrit 41.7 % (41.0-53.0); Hemoglobin 13.3 g/dL (13.5-17.5); Mean Corpuscular Hemoglobin 24.0 pg (28.0-32.0); Mean Corpuscular Volume 74.9 fL (80.0-100.0); Nucleated Red Blood Cells % 0.0 %
[2025-01-14 20:57] LABS: Base Excess -1.3 mmol/L (-2.0-3.0)
[2025-01-14 21:05] LABS: Albumin 4.6 g/dL (3.2-4.8); Alkaline Phosphatase 110 U/L (46-116); Anion Gap 11 (5-15); BUN/Creatinine Ratio 11.7 (10.0-20.0); Bilirubin, Total 0.8 mg/dL (0.2-1.0); Blood Urea Nitrogen 13 mg/dL (9-23); Calcium 9.8 mg/dL (8.7-10.4); Carbon Dioxide 24 mmol/L (20-31); Magnesium 2.0 mg/dL (1.6-2.6); Potassium 3.8 mmol/L (3.5-5.1); Sodium 143 mmol/L (136-145); Total Protein 6.9 g/dL (5.7-8.2)
[2025-01-14 21:09] LABS: Alanine Aminotransferase < 9 U/L (7-40); Chloride 108 mmol/L (98-107); Glucose 146 mg/dL (74-106)
--- NOTE | 2025-01-14 21:16 | DVH ---
CHEST RADIOGRAPH Indication: ALOC, AFIB, Technique: Single frontal view of the chest was obtained Comparison: XY CHEST PORTABLE on DOS: 10/03/24, XY CHEST XRAY 1 VIEW on DOS: 06/14/24, CHEST PORTABLE o n DOS: 08/26/22 FINDINGS: Lines and Tubes: None Lungs: No focal consolidation. Pleura: No effusion. No pneumothorax. Cardiomediastinal contours: Yiep-fj-dvksradh cardiomegaly. Bones: No acute osseous abnormality. Cervical fixation hardware is noted. IMPRESSION: Agfg-os-zdwmcinj cardiomegaly . Otherwise, no evidence for acute cardiopulmonary disease.
[2025-01-14 21:25] VITALS: PULSE 154; RESP 19; O2SAT 94
[2025-01-14] MEDS: cefTRIAXone 1GM/50ML D5W 50 ML IV ONE (21:28)
[2025-01-14] MEDS: METOPROLOL TARTRATE 1MG/1ML-5ML VIAL IV ONE ×2 (21:28→22:21)
[2025-01-14] MEDS ORDERED: ONDANSETRON HCL 4 MG/2 ML VIAL IV PRN (21:30)
[2025-01-14] MEDS ORDERED: DEXTROSE (50%) 50ML SYRG IV PRN (21:30)
[2025-01-14] MEDS ORDERED: DOCUSATE SOD 100 MG CAP PO PRN (21:30)
[2025-01-14] MEDS: levETIRAcetam 500 mg/100ml 100 ML IV SCH (21:45)
[2025-01-14] MEDS: APIXABAN 5 MG TAB PO SCH (22:00)
[2025-01-14] MEDS: GABAPENTIN 300 MG CAP PO SCH (22:00)
[2025-01-14] MEDS: ATORVASTATIN 20 MG TAB PO SCH (22:00)
[2025-01-14] MEDS: LORazepam 2MG/ML-1ML VIAL IV ONE (22:07)
[2025-01-14] MEDS: SODIUM CHLOR 0.9% PF (SALINE LOCK) 10ML VIAL/SYR IV SCH (22:12)
[2025-01-14] MEDS: CARVEDILOL 3.125 MG TAB PO SCH (22:32)
--- NOTE | 2025-01-14 22:33 | DVHHP2 ---
History of Present Illness Reason for Visit: Altered level of consciousness History of Present Illness The patient is a 75-year-old male with multiple past medical history including AFib, DM, Coronary artery disease, DC, and hypertension who presented to [facility] ED for evaluation of confusion state. Patient's is concerned about possible drug overdose with oxycodone and Percocet. Patient has been lethargic, altered, screaming, and poor appetite. Patient was seen and evaluated in the ED, laboratory data shows WBC 14.0, platelets 159, sodium 143, potassium 3.8, BUN 13, creatinine 1.11, glucose 143, calcium 9.8, BNP 265.01, troponin 7, blood pressure 144/100, heart rate 64, temperature 98.2 F, O2 saturation 96% on room air. Chest x-ray revealing mild to moderate cardiomegaly, otherwise no evidence of acute cardiopulmonary disease. Please see medication orders section in the computer. On my assessment, patient denied chest pain, no headache no dizziness, no diaphoresis, shortness of breath, no nausea, no vomiting, no fever, no chills. Patient was admitted for further evaluation and medical management. Past Medical History CAD, CHF, CVA, DC, HTN, HLD, DM, a-fib, chronic back pain Past Surgical History Back surgery, Cardiac stents Family History Reviewed, noncontributory to the management of this case. Past Social History The patient lives at home, denies smoking, alcohol or illicit drugs abuse. Review of Systems Constitutional: Yes: Weakness; No: Fever, Chills, Sweats, Malaise, Other Eyes: No: Pain, Vision change, Conjunctivae inflammation, Eyelid inflammation, Other, Redness ENT: No: Ear pain, Ear discharge, Nose pain, Nose discharge, Nose congestion, Mouth pain, Mouth swelling, Throat pain, Throat swelling, Other Respiratory: No: Cough, Dry, Shortness of breath, SOB with excertion, Wheezing, Hemoptysis, Pleuritic Pain, Sputum, Wheezing, Other Cardiovascular: No: Chest Pain, Palpitations, Orthopnea, Paroxysmal Noc. Dyspnea, Edema, Lt Headedness, Other Gastrointestinal: No: Nausea, Vomiting, Abdominal Pain, Diarrhea, Constipation, Melena, Hematochezia, Other Genitourinary: No Dysuria, No Frequency, No Incontinence, No Hematuria, No Retention, No Other Musculoskeletal: No: other, neck pain, shoulder pain, arm pain, back pain, hand pain, leg pain, foot pain Skin: No: Rash, Lesions, Jaundice, Bruising, Other Neurological: Other (Altered level of consciousness); No: Weakness, Numbness, Incoordination, Change in speech, Confusion, Seizures Allergies: Coded Allergies: NO KNOWN ALLERGIES (Unverified , 03/26/21) Medications Current Medications Medications Dose Ordered Sig/Stephen Route Start Time Stop Time Status Last Admin Dose Admin Duloxetine HCl 60 mg DAILY PO 01/15/25 10:00 Tamsulosin HCl 0.4 mg QPM PO 01/15/25 18:00 Atorvastatin Calcium 40 mg HS PO 01/14/25 22:00 Levetiracetam 100 ml @ 400 mls/hr BID IV 01/14/25 22:00 01/14/25 21:45 400 MLS/HR Lisinopril 20 mg DAILY PO 01/15/25 10:00 Gabapentin 300 mg BID PO 01/14/25 22:00 Ceftriaxone Sodium 50 ml @ 100 mls/hr DAILY@09 IV 01/15/25 09:00 Hydralazine HCl 10 mg Q6HP PRN IV 01/14/25 21:30 Carvedilol 3.125 mg Q12HR PO 01/14/25 22:00 Apixaban 5 mg BID PO 01/14/25 22:00 Diagnostic Test (Pha) 1 strip IQ4HR 01/15/25 00:00 Insulin Human Regular IQ4HR SC 01/15/25 00:00 Dextrose 50 ml UD PRN IV 01/14/25 21:30 Sodium Chloride 10 ml Q8HR IV 01/14/25 22:00 01/14/25 22:12 10 ML Acetaminophen/ Hydrocodone Bitart 1 tab Q4HP PRN PO 01/14/25 21:30 Ondansetron HCl 4 mg Q4HP PRN IV 01/14/25 21:30 Docusate Sodium 100 mg BIDPRN PRN PO 01/14/25 21:30 Acetaminophen 650 mg Q6HP PRN PO 01/14/25 21:30 Exam Vital Signs Vital Signs Date Time Temp Pulse Resp B/P (MAP) Pulse Ox O2 Delivery O2 Flow Rate FiO2 01/14/25 22:21 133 147/96 01/14/25 21:25 97.3 19 94 97.3 General Appearance: Alert, Cooperative, No acute distress, Other (Oriented x2) HEENT: Atraumatic, PERRLA, EOMI, Mucous membr. moist/pink Respiratory: Clear to auscultation, Normal air movement Cardiovascular: Regular rate, Normal S1, Normal S2, No murmurs Abdominal: Normal bowel sounds, Soft, No tenderness, No hepatospenomegaly, No masses Extremities: No clubbing, No cyanosis, No edema, Normal pulses, No tenderne ss/swelling Skin: No rashes, No breakdown, No significant lesion Neuro: Normal speech, Normal tone, Sensation intact, Cranial nerves 3-12 NL, Reflexes 2+, Other (Generalized weakness) Psych/Mental Status: Mental status NL, Mood NL Labs/Xrays Labs Test 01/14/25 20:46 01/14/25 20:33 Range/Units Blood Gas Specimen Type Arterial Blood Gas Sample Site Right radial Blood Gas Patient Temperature 37.0 Arterial Blood Date Drawn [id number] Arterial Blood pH 7.514 H 7.350-7.450 Arterial Blood Partial Pressure CO2 25.4 L 35.0-48.0 mmHg Arterial Blood Partial Pressure O2 74.6 L 83.0-108.0 mmHg Arterial Blood HCO3 20.0 L 21.0-28.0 mmol/L Arterial Blood Oxygen Saturation 96.3 94.0-98.0 % Arterial Blood Base Excess -1.3 -2.0-3.0 mmol/L Arterial Blood Oxyhemoglobin 94.3 94.0-98.0 % Arterial Blood Carboxyhemoglobin 1.9 H 0.5-1.5 % Arterial Blood Methemoglobin 0.2 0.0-1.5 % Saqib Test Yes Blood Gas Total Hemoglobin 14.40 13.5-17.5 g/dL Blood Gas Modality Room air Blood Gas Spontaneous Rate 24 FiO2 % 21.0 White Blood Count 14.0 H 4.4-10.8 10^3/uL Red Blood Count 5.56 4.5-5.90 10^6/uL Hemoglobin 13.3 L 13.5-17.5 g/dL Hematocrit 41.7 41.0-53.0 % Mean Corpuscular Volume 74.9 L 80.0-100.0 fL Mean Corpuscular Hemoglobin 24.0 L 28.0-32.0 pg Mean Corpuscular Hemoglobin Concent 32.0 32.0-36.0 g/dL Red Cell Distribution Width 18.8 H 11.8-14.3 % Platelet Count 189 140-450 10^3/uL Mean Platelet Volume 7.7 6.9-10.8 fL Neutrophils (%) (Auto) 84.9 H 37.0-80.0 % Lymphocytes (%) (Auto) 7.7 L 10.0-50.0 % Monocytes (%) (Auto) 5.9 0.0-12.0 % Eosinophils (%) (Auto) 1.1 0.0-7.0 % Basophils (%) (Auto) 0.4 0.0-2.0 % Neutrophils # (Auto) 11.9 H 1.6-8.6 10 ^3/uL Lymphocytes # (Auto) 1.1 0.4-5.4 10 ^3/uL Monocytes # (Auto) 0.8 0-1.3 10 ^3/uL Eosinophils # (Auto) 0.2 0-0.8 10 ^3/uL Basophils # (Auto) 0.1 0-0.2 10 ^3/uL Nucleated Red Blood Cells 0.0 % Sodium Level 143 136-145 mmol/L Potassium Level 3.8 3.5-5.1 mmol/L Chloride Level 108 H 98-107 mmol/L Carbon Dioxide Level 24 20-31 mmol/L Anion Gap 11 5-15 Blood Urea Nitrogen 13 9-23 mg/dL Creatinine 1.11 0.700-1.30 mg/dL Glomerular Filtration Rate Calc 70 >90 mL/min BUN/Creatinine Ratio 11.7 10.0-20.0 Serum Glucose 146 H 74-106 mg/dL Lactic Acid Level 1.0 0.4-2.0 mmol/L Calcium Level 9.8 8.7-10.4 mg/dL Magnesium Level 2.0 1.6-2.6 mg/dL Total Bilirubin 0.8 0.2-1.0 mg/dL Aspartate Amino Transferase (AST) 14 13-40 U/L Alanine Aminotransferase (ALT) < 9 7-40 U/L Alkaline Phosphatase 110 46-116 U/L Troponin I High Sensitivity 7 </=54 ng/L B-Type Natriuretic Peptide 265.01 0-100 pg/mL Total Protein 6.9 5.7-8.2 g/dL Albumin 4.6 3.2-4.8 g/dL Acetaminophen Level < 2.0 L 10.0-20.0 UG/ML Plasma/Serum Blood Alcohol < 3.0 <10 mg/dL PATIENT: DENA ROSALES ACCT: [id number] UNIT: [id number] : 1950 LOC: OVERFLOW ROOM / BED: [address] [place] [address] AGE / SEX: 75 / M ADM STATUS: ADM IN SERVICE 6 ORDERING PHYSICIAN: JENNIFER FRAIRE DNP PROCEDURE(s): HWOCT - HEAD WITHOUT CONTRAST REASON: confusion ORDER NUMBER(s): [id number], ACCESSION NUMBER(s): [id number] EXAM: CT HEAD WITHOUT CONTRAST INDICATION: confusion TECHNIQUE: CT of the head without intravenous contrast. Radiation Dose: 1. Head: CT Dose: CTDI volume is 68.06 mGy. Dose-length product is 4427.78 mGy*cm The dose indicators for CT are the volume Computed Tomography (CT) Dose Index (CTDIvol) and the Dose Length Product (DLP), and are measured in units of mGy and mGy-cm, respectively. These indicators are not patient dose, but values generated from the CT scanner acquisition factors. The report includes radiation exposure data for exposures received during this examination. COMPARISON: CT HEAD WITHOUT CONTRAST on DOS: 10/03/24, CT HEAD WITHOUT CONTRAST on DOS: 06/14/24 FINDINGS: There is no evidence of acute intracranial hemorrhage, extra-axial collection, mass effect, midline shift, herniation or hydrocephalus. Increased prominence of the ventricles, sulci and cisterns is consistent with the sequelae of atrophic cortical volume loss. The lemus-white differentiation is intact. Moderate diffuse confluent periventricular and subcortical white matter hypoattenuation is nonspecific but may be related to small vessel ischemic disease. The visualized paranasal sinuses and mastoid air cells are clear. 9 mm calcific excrescence arising from the right frontal convexity inner table of the calvarium. The surrounding soft tissues and osseous structures are otherwise unremarkable. IMPRESSION: 1. No acute intracranial abnormality. 2. Chronic sequelae of microvascular disease and atrophic cortical volume loss. ORDERING PHYSICIAN: SABRA MCKENNA DO PROCEDURE(s): CXRP - CHEST PORTABLE REASON: ALOC, AFIB, ORDER NUMBER(s): [id number], ACCESSION NUMBER(s): [id number] CHEST RADIOGRAPH Indication: ALOC, AFIB, Technique: Single frontal view of the chest was obtained Comparison: XY CHEST PORTABLE on DOS: 10/03/24, XY CHEST XRAY 1 VIEW on DOS: 06/14/24, CHEST PORTABLE on DOS: 08/26/22 FINDINGS: Lines and Tubes: None Lungs: No focal consolidation. Pleura: No effusion. No pneumothorax. Cardiomediastinal contours: Jsji-xd-pcjckttd cardiomegaly. Bones: No acute osseous abnormality. Cervical fixation hardware is noted. IMPRESSION: Ipeo-ax-ocxkxlel cardiomegaly. Otherwise, no evidence for acute cardiopulmonary disease. SEPSIS Sepsis Screen Date sepsis recognized/suspect: Jan 14, 2025 Time Sepsis recognized/suspect: 1957 Recent Procedure: No On Antibiotic Therapy: No Respiratory Rate >20: No Heart Rate >90: No Temp<36 C (96.8 F) or >38.3 C: No SBP <90 or MAP <65 mmHG: No New Acute Mental Status Change: No Is the patient on CPAP, BIPAP,: No Physician Orders Commodity Manager (01/14/25 ) Drug Screen (01/14/25 20:18) Urinalysis (01/14/25 20:18) Chest Portable (01/14/25 20:18) Electrocardigram (01/14/25 20:18) Seizure Precautions (01/14/25 ) Troponin-I Hs (01/14/25 21:18) Troponin-I Hs (01/14/25 23:18) Electrocardigram (01/14/25 21:18) Electrocardigram (01/14/25 23:18) Abg W/ Co-Ox (01/14/25 20:19) Blood Culture (01/14/25 21:10) Consistent Carb(Ccho)Diabetes (01/15/25 Breakfast) Duloxetine Hcl Capsule (Cymbalta Capsule (01/15/25 10:00) Tamsulosin Hydrochloride (Flomax) (01/15/25 18:00) Atorvastatin (Lipitor) (01/14/25 22:00) Levetiracetam 500 Mg/100ml (Levetiraceta (01/14/25 22:00) Lisinopril Tablet (Zestril Tablet) (01/15/25 10:00) Gabapentin Capsule (Neurontin Capsule) (01/14/25 22:00) Ceftriaxone 1gm/50ml D5w (Rocephin) (01/15/25 09:00) Hydralazine Injection (Apresoline Inject (01/14/25 21:30) Carvedilol Tablet (Coreg Tablet) (01/14/25 22:00) Apixaban (Eliquis) (01/14/25 22:00) Glucose Blood (Accu-Chek Comfort Curve T (01/15/25 00:00) Insulin R (Human) (Insulin R) (01/15/25 00:00) Dextrose 50% Syringe (01/14/25 21:30) Allergies (01/14/25 21:18) Code Status (01/14/25:18) Sodium Chloride Lock (Saline Lock Ns) (01/14/25 22:00) Oxygen Per Hour (01/14/25 21:18) Hydrocodone-Acet 5/325mg Tab ([place] 5/32 (01/14/25 21:30) Ondansetron Hcl (Zofran) (01/14/25 21:30) Docusate Sodium Capsule (Colace Capsule) (01/14/25 21:30) Fall Risk Precautions In Place QSHIFT (01/14/25:18) Complete Blood Count (01/15/25 04:00) Comprehensive Metabolic Panel (01/15/25 04:00) Condition: Serious (01/14/25 21:18) Acetaminophen Tablet (Tylenol Tablet) (01/14/25 21:30) Maintain Bed Rest (01/14/25 21:18) Sequential Compression Device (01/14/25 ) Admit (01/14/25 22:31) Nitroglycerin Sublingual (Ntrostat Subli (01/14/25 22:45) Morphine Sulfate Injection (01/14/25 22:45) Stat Ekg For Chest Pain (01/14/25 22:31) Notify Md Of Changes From Base (01/14/25 22:31) Minister Helper For 24 Hours (01/14/25 22:31) Emergency Dysrhythmia Protocol (01/14/25 22:31) Rhythm Strips Once Every Shift (01/14/25 22:31) Oxygen By Nasal Cannula (01/14/25 22:31) Vital Signs Date Time Temp Pulse Resp B/P (MAP) Pulse Ox O2 Delivery O2 Flow Rate FiO2 01/14/25 22:21 133 147/96 01/14/25 21:28 148 183/103 01/14/25 21:25 97.3 154 19 183/103 (129) 94 97.3 01/14/25 20:31 98.2 80 16 151/89 (109) 96 98.2 01/14/25 20:31 64 12 144/100 (115) 96 Laboratory Tests Test 01/14/25 20:33 Lactic Acid Level 1.0 mmol/L (0.4-2.0) White Blood Count 14.0 10^3/uL (4.4-10.8) H Medications Medications Dose Ordered Sig/Stephen Route Start Time Stop Time Status Last Admin Dose Admin Ceftriaxone Sodium 50 ml @ 100 mls/hr ONCE ONCE IV 01/14/25 21:15 01/14/25 21:44 DC 01/14/25 21:28 100 MLS/HR Levetiracetam 100 ml @ 400 mls/hr BID IV 01/14/25 22:00 01/14/25 21:45 400 MLS/HR Lorazepam 1 mg ONCE ONCE IV 01/14/25 22:00 01/14/25 22:01 DC 01/14/25 22:07 1 MG Metoprolol Tartrate 5 mg ONCE ONCE IV 01/14/25 21:15 01/14/25 21:16 DC 01/14/25 21:28 5 MG Metoprolol Tartrate 5 mg ONCE ONCE IV 01/14/25 22:00 01/14/25 22:01 DC 01/14/25 22:21 5 MG Naloxone HCl 2 mg ONCE ONCE IV 01/14/25 20:30 01/14/25 20:31 DC 01/14/25 20:29 2 MG Sodium Chloride 10 ml Q8HR IV 01/14/25 22:00 01/14/25 22:12 10 ML Assessment/Plan Assessment/Plan Atrial fibrillation with RVR Opiate overdose Hypoxemia Leukocytosis, unspecified Vlwk-Kkfprmoz-Ijjnk syndrome Altered level of consciousness Generalized weakness Plan 1. Admit to telemetry unit 2. Breathing treatment 3. Pain control management 4. IV antibiotic management 5. Management of fluids and electrolytes 6. Consultation for hospitalist/cardiology 7. Diagnostic test chest x-ray 8. DVT prophylaxis-on Eliquis 9. Repeat labs CBC, CMP in a.m. 10. Home medication reviewed and reconciled 11. Continue with current medical management 12. Treatment plan discussed with patient and RN. Patient verbalized understanding. Plan discussed with: Patient, Other (RN) My Orders Orders - JENNIFER FRAIRE DNP Procedure Category Date Status Time Consistent DIET 01/15/25 Transmitted Carb(Ccho)Diabetes Breakfast Duloxetine Hcl PHA 01/15/25 In Process Capsule (Cymbalta 10:00 Tamsulosin PHA 01/15/25 In Process Hydrochloride (Flomax) 18:00 Atorvastatin (Lipitor) PHA 01/14/25 In Process 22:00 Levetiracetam 500 PHA 01/14/25 In Process Mg/100ml (Levetiraceta 22:00 Lisinopril Tablet PHA 01/15/25 In Process (Zestril Tablet) 10:00 Gabapentin Capsule PHA 01/14/25 In Process (Neurontin Capsule) 22:00 Ceftriaxone 1gm/50ml PHA 01/15/25 In Process D5w (Rocephin) 09:00 Hydralazine Injection PHA 01/14/25 In Process (Apresoline Inject 21:30 Carvedilol Tablet PHA 01/14/25 In Process (Coreg Tablet) 22:00 Apixaban (Eliquis) PHA 01/14/25 In Process 22:00 Glucose Blood PHA 01/15/25 In Process (Accu-Chek Comfort 00:00 Insulin R (Human) PHA 01/15/25 In Process (Insulin R) 00:00 Dextrose 50% Syringe PHA 01/14/25 In Process 21:30 Allergies DEION 01/14/25 In Process 21:18 Code Status CODE 01/14/25 Transmitted 21:18 Sodium Chloride Lock PHA 01/14/25 In Process (Saline Lock Ns) 22:00 Oxygen Per Hour RT 01/14/25 Transmitted 21:18 Hydrocodone-Acet PHA 01/14/25 In Process 5/325mg Tab ([place] 21:30 Ondansetron Hcl PHA 01/14/25 In Process (Zofran) 21:30 Docusate Sodium PHA 01/14/25 In Process Capsule (Colace 21:30 Fall Risk Precautions DEION 01/14/[address] 21:18 Complete Blood Count LAB 01/15/25 Verified 04:00 Comprehensive LAB 01/15/25 Verified Metabolic Panel 04:00 Condition: Serious [facility] 01/14/25 In Process 21:18 Acetaminophen Tablet [facility] 01/14/25 In Process (Tylenol Tablet) 21:30 Maintain Bed Rest [facility] 01/14/25 In Process 21:18 Sequential [facility] 01/14/25 In Process Compression Device Admit ADMIT 01/14/25 Verified 22:31 Nitroglycerin [facility] 01/14/25 Verified Sublingual (Ntrostat 22:45 Morphine Sulfate [facility] 01/14/25 Verified Injection 22:45 Stat Ekg For Chest [facility] 01/14/25 Verified Pain 22:31 Notify Md Of Changes [facility] 01/14/25 Verified From Base 22:31 Minister Helper For [facility] 01/14/25 Verified 24 Hours 22:31 Emergency Dysrhythmia [facility] 01/14/25 Verified Protocol 22:31 Rhythm Strips Once [facility] 01/14/25 Verified Every Shift 22:31 Oxygen By Nasal RT 01/14/25 Verified Cannula 22:31 Problem List: (1) Atrial fibrillation with RVR (2) Opiate overdose (3) Hypoxemia (4) Leukocytosis, unspecified (5) Lepy-Ijgxjfdp-Sjfyc syndrome (6) Altered level of consciousness (7) Generalized weakness Date of Service: Jan 14, 2025 Billing Provider: JENNIFER FRAIRE DNP Common Visit Codes: [id number] INP/OBS CARE (HIGH) JENNIFER FRIARE DNP Jan 14, 2025 22:33
[2025-01-14] MEDS ORDERED: MORPHINE SULFATE INJ 2 MG/ml SYRG IV PRN (22:45)
[2025-01-14] MEDS ORDERED: NITROGLYCERIN 0.4 MG SL TAB SL PRN (22:45)
[2025-01-14] MEDS: HALOPERIDOL LACTATE 5 MG/ML INJ VIAL IM ONE (23:08)
[2025-01-14] MEDS: LABETALOL HCL 20 MG/4 ML VL IV ONE (23:57)
[2025-01-15] MEDS: ACCU-CHEK COMFORT CURVE STRIP VI SCH (00:01)
[2025-01-15] MEDS: InsuLIN REG 1unit/0.01ml Soln (100units/ml) SC SCH (00:17)
[2025-01-15] MEDS ORDERED: AMIODARONE 360mg/200mL PREMIX 200 ML IV SCH ×3 (01:00→07:00)
[2025-01-15] MEDS: HALOPERIDOL LACTATE 5 MG/ML INJ VIAL IM ONE (01:05)
[2025-01-15] MEDS: HALOPERIDOL LACTATE 5 MG/ML INJ VIAL ONE (01:12)
[2025-01-15] MEDS: DIGOXIN (250MCG/ML) 2 ML AMPULE IV ONE (01:15)
[2025-01-15 02:06] LABS: Urine Protein, UAD 1+ (Negative)
[2025-01-15 02:11] LABS: Amphetamine Screen, Urine Neg (NEGATIVE); Barbiturate Scree,Urine Neg (NEGATIVE); Benzodiazephine Screen, Urine Neg (NEGATIVE); Cannabinoid Screen, Urine Neg (NEGATIVE); Cocaine Screen, Urine Neg (NEGATIVE); Opiate Scree,Urine Neg (NEGATIVE); Phencyclidine Screen, Urine Neg (NEGATIVE)
[2025-01-15] MEDS: AMIODARONE BOLUS KIT 100 ML IV ONE (02:29)
--- NOTE | 2025-01-15 03:54 | DVH ---
EXAM: CT HEAD WITHOUT CONTRAST INDICATION: confusion TECHNIQUE: CT of the head without intravenous contrast. Radiation Dose : 1. Head: CT Dose: CTDI volume is 68.06 mGy. Dose-length product is 4427.78 mGy*cm The dose indicators for CT are the volume Computed Tomography (CT) Dose Index (CTDIvol) and the Dose Length Product (DLP), and are measured in units of mGy and mGy-cm, respectively. These indicators are not patient dose, but values generated from the CT scanner acquisition factors. The report includes radiation exposure data for exposures received during this examination. COMPARISON: CT HEAD WITHOUT CONTRAST on DOS: 10/03/24, CT HEAD WITHOUT CONTRAST on DOS: 06/14/24 FINDINGS: There is no evidence of acute intracranial hemorrhage, extra-axial collection, mass effect, midline s hift, herniation or hydrocephalus. Increased prominence of the ventricles, sulci and cisterns is consistent with the sequelae of atrophi c cortical volume loss. The lemus-white differentiation is intact. Moderate diffuse confluent periventricular and subcortical white matter hypoattenuation is nonspecifi c but may be related to small vessel ischemic disease. The visualized paranasal sinuses and mastoid air cells are clear. 9 mm calcific excrescence arising from the right frontal convexity inner table of the calvarium. The surrounding soft tissues and osseous structures are otherwise unremarkable. IMPRESSION: 1. No acute intracranial abnormality. 2. Chronic sequelae of microvascular disease and atrophic cortical volume loss. Radiation optimization: All CT scans at this facility use at least one of these dose optimization bella hniques: automated exposure control mA and/or kV adjustment per patient size (includes targeted exam s where dose is matched to clinical indication) or iterative reconstruction.
[2025-01-15] MEDS: AMIODARONE 360mg/200mL PREMIX 200 ML IV SCH ×2 (06:31→12:28)
[2025-01-15 06:56] LABS: Hematocrit 41.9 % (41.0-53.0); Hemoglobin 13.5 g/dL (13.5-17.5); Mean Corpuscular Hemoglobin 24.4 pg (28.0-32.0); Mean Corpuscular Volume 75.8 fL (80.0-100.0); Nucleated Red Blood Cells % 0.1 %
[2025-01-15 07:04] LABS: Albumin 4.7 g/dL (3.2-4.8); Alkaline Phosphatase 113 U/L (46-116); Anion Gap 14 (5-15); BUN/Creatinine Ratio 11.8 (10.0-20.0); Bilirubin, Total 0.8 mg/dL (0.2-1.0); Blood Urea Nitrogen 13 mg/dL (9-23); Calcium 10.1 mg/dL (8.7-10.4); Carbon Dioxide 21 mmol/L (20-31); Potassium 3.7 mmol/L (3.5-5.1); Sodium 143 mmol/L (136-145); Total Protein 7.1 g/dL (5.7-8.2)
[2025-01-15 07:13] LABS: Alanine Aminotransferase < 9 U/L (7-40); Chloride 108 mmol/L (98-107); Glucose 165 mg/dL (74-106)
[2025-01-15 08:20] VITALS: PULSE 127; RESP 26; O2SAT 92
[2025-01-15] MEDS: hydrALAZINE HCL 20 MG/ML VL IV PRN (08:56)
[2025-01-15] MEDS: LISINOPRIL 20 MG TAB PO SCH (10:46)
[2025-01-15] MEDS: cefTRIAXone 1GM/50ML D5W 50 ML IV SCH (10:46)
--- NOTE | 2025-01-15 13:22 | DVHPN2 ---
Subjective Took over patient's care today. Admitted for AFib RVR. Chart is reviewed and discussed with the nurse. Changes from previous H/P or p: No Changes Eyes: No Pain, No Vision change, No Conjunctivae inflammation, No Eyelid inflammation, No Other, No Redness ENT: No Ear pain, No Ear discharge, No Nose pain, No Nose discharge, No Nose congestion, No Mouth pain, No Mouth swelling, No Throat pain, No Throat swelling, No Other Cardiovascular: No Chest Pain, No Palpitations, No Orthopnea, No Paroxysmal Noc. Dyspnea, No Edema, No Lt Headedness, No Other Respiratory: No Cough, No Dry, No Shortness of breath, No SOB with excertion, No Wheezing, No Hemoptysis, No Pleuritic Pain, No Sputum, No Other Gastrointestinal: No Nausea, No Vomiting, No Abdominal Pain, No Diarrhea, No Constipation, No Melena, No Hematochezia, No Other Genitourinary: No Dysuria, No Frequency, No Incontinence, No Hematuria, No Retention, No Other Musculoskeletal: No other, No neck pain, No shoulder pain, No arm pain, No back pain, No hand pain, No leg pain, No foot pain Skin: No Rash, No Lesions, No Jaundice, No Bruising, No Other Objective Vitals Vital Signs Date Time Temp Pulse Resp B/P (MAP) Pulse Ox O2 Delivery O2 Flow Rate FiO2 01/15/25 11:47 105 114/93 01/15/25 08:20 26 92 Room Air* 0 21 01/15/25 08:20 98.1 98.1 Intake/Output Intake and Output 01/15/25 07:00 Intake Total 250 ml Balance 250 ml Intake IV Total 250 ml Exam Patient is anxious and agitated at times. Heart tachycardia S1 plus S2. Lungs poor inspiratory effort without wheezing. Abdomen soft positive bowel sounds. Extremities no edema. Medications Current Medications Medications Dose Ordered Sig/Stephen Route Start Time Stop Time Status Last Admin Dose Admin Duloxetine HCl 60 mg DAILY PO 01/15/25 10:00 01/15/25 10:48 60 MG Tamsulosin HCl 0.4 mg QPM PO 01/15/25 18:00 Atorvastatin Calcium 40 mg HS PO 01/14/25 22:00 Levetiracetam 100 ml @ 400 mls/hr BID IV 01/14/25 22:00 01/14/25 21:45 400 MLS/HR Lisinopril 20 mg DAILY PO 01/15/25 10:00 01/15/25 10:46 20 MG Gabapentin 300 mg BID PO 01/14/25 22:00 01/15/25 10:47 300 MG Ceftriaxone Sodium 50 ml @ 100 mls/hr DAILY@09 IV 01/15/25 09:00 01/15/25 10:46 100 MLS/HR Hydralazine HCl 10 mg Q6HP PRN IV 01/14/25 21:30 01/15/25 08:56 10 MG Carvedilol 3.125 mg Q12HR PO 01/14/25 22:00 01/15/25 10:47 3.125 MG Apixaban 5 mg BID PO 01/14/25 22:00 01/15/25 10:46 5 MG Diagnostic Test (Pha) 1 strip IQ4HR 01/15/25 00:00 01/15/25 12:34 1 STRIP Insulin Human Regular IQ4HR SC 01/15/25 00:00 01/15/25 12:34 3 UNITS Dextrose 50 ml UD PRN IV 01/14/25 21:30 Sodium Chloride 10 ml Q8HR IV 01/14/25 22:00 01/15/25 05:25 10 ML Acetaminophen/ Hydrocodone Bitart 1 tab Q4HP PRN PO 01/14/25 21:30 Ondansetron HCl 4 mg Q4HP PRN IV 01/14/25 21:30 Docusate Sodium 100 mg BIDPRN PRN PO 01/14/25 21:30 Acetaminophen 650 mg Q6HP PRN PO 01/14/25 21:30 Nitroglycerin 0.4 mg Q5MINP PRN SL 01/14/25 22:45 Morphine Sulfate 2 mg Q30M PRN IV 01/14/25 22:45 Lorazepam 0.5 mg Q8HP PRN IV 01/15/25 13:00 UNV Laboratory Results Laboratory Tests 01/15/25 06:12 Chemistry Test 01/14/25 20:33 01/15/25 06:12 Albumin 4.6 g/dL (3.2-4.8) 4.7 g/dL (3.2-4.8) Calcium Level 9.8 mg/dL (8.7-10.4) 10.1 mg/dL (8.7-10.4) Magnesium Level 2.0 mg/dL (1.6-2.6) Total Protein 6.9 g/dL (5.7-8.2) 7.1 g/dL (5.7-8.2) Cardiac Markers Test 01/14/25 20:33 B-Type Natriuretic Peptide 265.01 pg/mL (0-100) LFT Test 01/14/25 20:33 01/15/25 06:12 Alanine Aminotransferase (ALT) < 9 U/L (7-40) < 9 U/L (7-40) Alkaline Phosphatase 110 U/L (46-116) 113 U/L (46-116) Aspartate Amino Transferase (AST) 14 U/L (13-40) 20 U/L (13-40) Total Bilirubin 0.8 mg/dL (0.2-1.0) 0.8 mg/dL (0.2-1.0) HgA1c, TSH Test 01/15/25 06:12 Thyroid Stimulating Hormone (TSH) 2.51 uIU/mL (0.55-4.78) Urinalysis Test 01/15/25 00:26 Urine Color Light-yellow (Yellow) Urine Clarity Clear (Clear) Urine pH 6.5 (5.0-9.0) Urine Specific [place] 1.029 (1.001-1.035) Urine Protein 1+ (Negative) H Urine Ketones 2+ (Negative) H Urine Blood Negative /uL (Negative) Urine Nitrite Negative (Negative) Urine Bilirubin Negative (Negative) Urine Urobilinogen Normal mg/dL (Negative) Urine Leukocyte Esterase Negative /uL (Negative) Urine RBC 3 /hpf (0 - 3) Urine Microscopic WBC 1 /HPF (0-3) Urine Squamous Epithelial Cells None seen /hpf (<5) Urine Bacteria None seen /hpf (None Seen) Urine Glucose 4+ mg/dL (Normal) H Blood Gas Results Test 01/14/25 20:46 Arterial Blood pH 7.514 (7.350-7.450) FiO2 % 21.0 Assessment/Plan Assessment/Plan Cardiac consultation. Continue amiodarone drip. 2D echocardiogram. Check thyroid panel. Ativan as needed for anxiety/agitation. Otherwise continue rest of supportive care and treatment. Further clinical management per clinical course and recommendations from the consultants. Discussed with the nurse regarding care plan. Plan discussed with: Other My Orders Orders - LATONYA ALONSO MD Procedure Category Date Status Time * Cardiology Consult CONS 01/15/25 Transmitted 12:48 Echo 2d Mode Cardiac US 01/15/25 Logged DOP 12:48 Free T4 (Free LAB 01/15/25 In Process Thyroxine) 12:48 Basic Metabolic Panel LAB 01/16/25 Verified 04:00 Complete Blood Count LAB 01/16/25 Verified 04:00 Lorazepam 2mg/Ml Inj PHA 01/15/25 Logged (Ativan Inj) 13:00 Problem List: (1) Altered mental status (2) Chronic pain syndrome (3) Atrial fibrillation with RVR (4) Atrial fibrillation (5) Leukocytosis, unspecified (6) Generalized weakness Date of Service: Jan 15, 2025 Billing Provider: LATONYA ALONSO MD Common Visit Codes: [id number] INP/OBS CARE(MOD) LATONYA ALONSO MD Jan 15, 2025 13:22
--- NOTE | 2025-01-15 14:26 | DVHINCON2 ---
Date Seen: Jan 15, 2025 Referring Physician Emmanuelle Reason for Consultation Atrial Fibrillation with episode of RVR History of Present Illness 75 y.o. male with PMH for persistent atrial fibrillation on Eliquis, CAD s/p PREM x2 to LAD 09/2022 at [place], HTN, diabetes, dyslipidemia, CVA , chronic diastolic HF, HTN, CKD, and NSVT, presents to the hospital with altered level consciousness. Patient states apparently he was fairly out of it and was told that he may have overdosed on his pain medication. At time of assessment patient A&O x3. Upon evaluation in the ER troponin negative, BNP 265, creatinine 1.11. Patient breathing stable on room air. Elevated uncontrolled hypertension. On telemetry patient found to be in AFib with RVR with heart rate into the 140s. Cardiology consulted. EKG reviewed and shows atrial fibrillation with rapid ventricular response at 139 bpm, Past Medical History As stated above Past Surgical History Cardiac catheterization 09/2022 with mid LAD 90% stenosis s/p PREM x2 from proximal to distal LAD, distal OM1 90% stenosis small caliber segment, [employer] Family History: Patient reports no known family medical history. Family History Denies pertinent family cardiac history Social History Denies alcohol, tobacco, or illicit drug use Allergies: Coded Allergies: NO KNOWN ALLERGIES (Unverified , 03/26/21) Home Meds Active Scripts Metoprolol Tartrate (Metoprolol Tartrate) 50 Mg Tab, 50 MG PO BID for 30 Days, #60 TAB 3 Refills Prov:MARISOL CURRAN MD 08/26/22 Reported Medications Oxycodone HCl (Oxycontin) 15 Mg Tab, 1 TAB PO [id number] PRN for PAIN SCALE 7 THRU 10 08/26/22 Insulin Regular (Human) (Humulin R U-500 Kwikpen) 500 Unit/Ml Inj, 500 UNIT SC ACHS, INJ 08/25/22 Insulin NPH (Human) (Isophane) (Humulin N) 100 Unit/Ml Inj, 60 UNITS SC BID, INJ 08/25/22 Pantoprazole Sodium Sesquihydr (Protonix) 40 Mg Tab, 20 MG PO DAILY, #30 TAB 08/25/22 Duloxetine Hcl (Cymbalta) 60 Mg Cap, 60 MG PO BID, CAP 08/25/22 Tadalafil (Tadalafil) 5 Mg Tab, 1 TAB PO DAILY 08/25/22 Apixaban Base (ELIQUIS) 5 Mg Tab, 1 TAB PO BID 08/25/22 Levetiracetam (Levetiracetam) 500 Mg Tab, 1 TAB PO BID 08/25/22 Gabapentin (Gabapentin) 300 Mg Cap, 1 CAP PO BID 08/25/22 Tamsulosin Hcl (Tamsulosin Hcl) 0.4 Mg Cap, 1 CAP PO DAILY 08/25/22 Atorvastatin Calcium (ATORVASTATIN CALCIUM) 80 Mg Tab, 1 TAB PO DAILY 08/25/22 Lisinopril (Lisinopril) 20 Mg Tab, 1 TAB PO DAILY 08/25/22 Nifedipine (Nifedipine Er) 30 Mg Tab, 1 TAB PO BID 08/25/22 Propranolol HCl (Propranolol Hydrochloride) 40 Mg Tab, 1 TAB PO BID 08/25/22 Metformin Hydrochloride (Metformin Hcl) 1,000 Mg Tab, 1 TAB PO BID 08/25/22 Current Medications Current Medications Medications (Trade) Dose Ordered Sig/Stephen Route PRN Reason Start Time Stop Time Status Last Admin Duloxetine HCl (Cymbalta Capsule) 60 mg DAILY PO 01/15/25 10:00 01/15/25 10:48 Tamsulosin HCl (Flomax) 0.4 mg QPM PO 01/15/25 18:00 Atorvastatin Calcium (Lipitor) 40 mg HS PO 01/14/25 22:00 Levetiracetam 100 ml @ 400 mls/hr BID IV 01/14/25 22:00 01/14/25 21:45 Lisinopril (Zestril Tablet) 20 mg DAILY PO 01/15/25 10:00 01/15/25 10:46 Gabapentin (Neurontin Capsule) 300 mg BID PO 01/14/25 22:00 01/15/25 10:47 Ceftriaxone Sodium 50 ml @ 100 mls/hr DAILY@09 IV 01/15/25 09:00 01/15/25 10:46 Hydralazine HCl (Apresoline Injection) 10 mg Q6HP PRN IV SBP>150 01/14/25 21:30 01/15/25 08:56 Carvedilol (Coreg Tablet) 3.125 mg Q12HR PO 01/14/25 22:00 01/15/25 10:47 Apixaban (Eliquis) 5 mg BID PO 01/14/25 22:00 01/15/25 10:46 Diagnostic Test (Pha) (Accu-Chek Comfort Curve T) 1 strip IQ4HR 01/15/25 00:00 01/15/25 12:34 Insulin Human Regular (InsuLIN R) IQ4HR SC 01/15/25 00:00 01/15/25 12:34 Dextrose 50 ml UD PRN IV Blood Sugar LESS THAN 60 01/14/25 21:30 Sodium Chloride (Saline Lock Ns) 10 ml Q8HR IV 01/14/25 22:00 01/15/25 05:25 Acetaminophen/ Hydrocodone Bitart ([place] 5/325MG Tab) 1 tab Q4HP PRN PO MODERATE PAIN (4-6 PAIN SCALE) 01/14/25 21:30 Ondansetron HCl (Zofran) 4 mg Q4HP PRN IV NAUSEA / VOMITING 01/14/25 21:30 Docusate Sodium (Colace Capsule) 100 mg BIDPRN PRN PO FOR CONSTIPATION 01/14/25 21:30 Acetaminophen (Tylenol Tablet) 650 mg Q6HP PRN PO PAIN SCALE 1-3 OR TEMP>100.4 01/14/25 21:30 Nitroglycerin (Ntrostat Sublingual) 0.4 mg Q5MINP PRN SL FOR CHEST PAIN 01/14/25 22:45 Morphine Sulfate 2 mg Q30M PRN IV FOR CHEST PAIN 01/14/25 22:45 Lorazepam (Ativan Inj) 0.5 mg Q8HP PRN IV ANXIETY 01/15/25 13:00 UNV Review of Systems Constitutional: No: Fever, Chills, Sweats, Weakness, Malaise, Other anxious Eyes: No: Pain, Vision change, Conjunctivae inflammation, Eyelid inflammation, Other, Redness ENT: No: Ear pain, Ear discharge, Nose pain, Nose discharge, Nose congestion, Mouth pain, Mouth swelling, Throat pain, Throat swelling, Other Respiratory: No: Cough, Dry, Shortness of breath, SOB with exertion, Wheezing, Hemoptysis, Pleuritic Pain, Sputum, Wheezing, Other Cardiovascular: ; No: Chest Pain Palpitations, Orthopnea, Paroxysmal Noc. Dyspnea, Edema, Lt Headedness, Other Gastrointestinal: No: Nausea, Vomiting, Abdominal Pain, Diarrhea, Constipation, Melena, Hematochezia, Other Genitourinary: No Dysuria, No Frequency, No Incontinence, No Hematuria, No Retention, No Other Musculoskeletal: neck pain; No: other, shoulder pain, arm pain, back pain, hand pain, leg pain, foot pain Skin: No: Rash, Lesions, Jaundice, Bruising, Other Neurological: Other (Dizziness, headache.); No: Weakness, Numbness, Incoordination, Change in speech, Confusion, Seizures Vital Signs Vital Signs Date Time Temp Pulse Resp B/P (MAP) Pulse Ox O2 Delivery O2 Flow Rate FiO2 01/15/25 11:47 105 114/93 01/15/25 08:20 26 92 Room Air* 0 21 01/15/25 08:20 98.1 98.1 Physical Exam General appearance: Patient is well-developed, well-nourished, in no acute distress. HEENT: Exam shows: Normocephalic, atraumatic, PERRLA, EOMI Neck: Supple, no bruits Chest: Equal chest excursion bilaterally. Breath sounds normal-no rales or wheezes. Heart: Rhythm: Irregular rate; no murmur or gallop Abdomen: Exam shows: Soft, nontender, nondistended Musculoskeletal: No clubbing, no cyanosis, no lower extremity edema Dermatology: Skin warm, moist. Neurological: Exam shows: Alert and oriented x3, normal speech Available prior records, labs, EKG, rhythm strips reviewed and interpreted Labs/Diagnostic Data Labs Test 01/15/25 12:27 01/15/25 06:12 01/15/25 00:26 01/14/25 23:59 Range/Units POC Glucose 196 H 70-106 mg/dl White Blood Count 13.6 H 4.4-10.8 10^3/uL Red Blood Count 5.53 4.5-5.90 10^6/uL Hemoglobin 13.5 13.5-17.5 g/dL Hematocrit 41.9 41.0-53.0 % Mean Corpuscular Volume 75.8 L 80.0-100.0 fL Mean Corpuscular Hemoglobin 24.4 L 28.0-32.0 pg Mean Corpuscular Hemoglobin Concent 32.2 32.0-36.0 g/dL Red Cell Distribution Width 18.9 H 11.8-14.3 % Platelet Count 214 140-450 10^3/uL Mean Platelet Volume 8.2 6.9-10.8 fL Neutrophils (%) (Auto) 84.8 H 37.0-80.0 % Lymphocytes (%) (Auto) 7.6 L 10.0-50.0 % Monocytes (%) (Auto) 7.0 0.0-12.0 % Eosinophils (%) (Auto) 0.2 0.0-7.0 % Basophils (%) (Auto) 0.4 0.0-2.0 % Neutrophils # (Auto) 11.5 H 1.6-8.6 10 ^3/uL Lymphocytes # (Auto) 1.0 0.4-5.4 10 ^3/uL Monocytes # (Auto) 1.0 0-1.3 10 ^3/uL Eosinophils # (Auto) 0 0-0.8 10 ^3/uL Basophils # (Auto) 0 0-0.2 10 ^3/uL Nucleated Red Blood Cells 0.1 % Sodium Level 143 136-145 mmol/L Potassium Level 3.7 3.5-5.1 mmol/L Chloride Level 108 H 98-107 mmol/L Carbon Dioxide Level 21 20-31 mmol/L Anion Gap 14 5-15 Blood Urea Nitrogen 13 9-23 mg/dL Creatinine 1.10 0.700-1.30 mg/dL Glomerular Filtration Rate Calc 71 >90 mL/min BUN/Creatinine Ratio 11.8 10.0-20.0 Serum Glucose 165 H 74-106 mg/dL Calcium Level 10.1 8.7-10.4 mg/dL Total Bilirubin 0.8 0.2-1.0 mg/dL Aspartate Amino Transferase (AST) 20 13-40 U/L Alanine Aminotransferase (ALT) < 9 7-40 U/L Alkaline Phosphatase 113 46-116 U/L Total Protein 7.1 5.7-8.2 g/dL Albumin 4.7 3.2-4.8 g/dL Thyroid Stimulating Hormone (TSH) 2.51 0.55-4.78 uIU/mL Urine Color Light-yellow Yellow Urine Clarity Clear Clear Urine pH 6.5 5.0-9.0 Urine Specific [place] 1.029 1.001-1.035 Urine Protein 1+ H Negative Urine Ketones 2+ H Negative Urine Blood Negative Negative /uL Urine Nitrite Negative Negative Urine Bilirubin Negative Negative Urine Urobilinogen Normal Negative mg/dL Urine Leukocyte Esterase Negative Negative /uL Urine RBC 3 0 - 3 /hpf Urine Microscopic WBC 1 0-3 /HPF Urine Squamous Epithelial Cells None seen <5 /hpf Urine Bacteria None seen None Seen /hpf Urine Glucose 4+ H Normal mg/dL Urine Opiates Screen Neg NEGATIVE Urine Fentanyl Screen Neg NEGATIVE Urine Barbiturates Screen Neg NEGATIVE Urine Phencyclidine Screen Neg NEGATIVE Urine Amphetamines Screen Neg NEGATIVE Urine Benzodiazepines Screen Neg NEGATIVE Urine Cocaine Screen Neg NEGATIVE Urine Cannabinoids Screen Neg NEGATIVE Troponin I High Sensitivity 8 </=54 ng/L Test 01/14/25 20:46 01/14/25 20:33 Range/Units Blood Gas Specimen Type Arterial Blood Gas Sample Site Right radial Blood Gas Patient Temperature 37.0 Arterial Blood Date Drawn [id number] Arterial Blood pH 7.514 H 7.350-7.450 Arterial Blood Partial Pressure CO2 25.4 L 35.0-48.0 mmHg Arterial Blood Partial Pressure O2 74.6 L 83.0-108.0 mmHg Arterial Blood HCO3 20.0 L 21.0-28.0 mmol/L Arterial Blood Oxygen Saturation 96.3 94.0-98.0 % Arterial Blood Base Excess -1.3 -2.0-3.0 mmol/L Arterial Blood Oxyhemoglobin 94.3 94.0-98.0 % Arterial Blood Carboxyhemoglobin 1.9 H 0.5-1.5 % Arterial Blood Methemoglobin 0.2 0.0-1.5 % Saqib Test Yes Blood Gas Total Hemoglobin 14.40 13.5-17.5 g/dL Blood Gas Modality Room air Blood Gas Spontaneous Rate 24 FiO2 % 21.0 Lactic Acid Level 1.0 0.4-2.0 mmol/L Magnesium Level 2.0 1.6-2.6 mg/dL B-Type Natriuretic Peptide 265.01 0-100 pg/mL Acetaminophen Level < 2.0 L 10.0-20.0 UG/ML Plasma/Serum Blood Alcohol < 3.0 <10 mg/dL Assessment * Persistent atrial fibrillation with episode of RVR - continue amiodarone at 1 mg/min continuous infusion. On metoprolol 50 mg P twice daily. Titrate as tolerated. On Eliquis 5 mg p.o. twice daily for stroke prophylaxis. Check TSH/T4. * Chronic HFpEF - continue on Lasix 40 mg p.o. daily. BNP 265. CXR negative for congestion/edema. Patient breathing stable on room air. Continue monitoring fluid volume status. * CAD s/p stent to LAD - continue on Plavix and statin. * Opiate overdose, AMS - CT head negative. Management per primary team. * Uncontrolled HTN - continue metoprolol 50 mg p.o. twice daily. On lisinopril 20 mg p.o. daily, titrate as tolerated. Nifedipine 30 mg p.o. daily added. Case Discussed with Dr Pires. Continue Amiodarone drip at 1 mg/min. Started on metoprolol 50mg po twice daily. Nifedipine added. Continue with PRN metoprolol IV as BP and HR tolerates. Check ECHO, TSH, and FT4. Critical care, time spent: 40 minutes This medical document was created using an electronic medical record system with voice recognition software and computerized dictation system. Although this document has been carefully reviewed, there might still be some phonetic and typographical errors. Occasional wrong-word or ``sound-alike substitutions may have occurred due to the inherent limitations of voice recognition software. These areas are purely typographical due to imperfections of the software programs and do not reflect any compromise in the patient's medical care. Please read the chart carefully and recognize, using context, where these substitutions have occurred. Thank you for allowing me to participate in the management of this patient. The treatment plan was discussed with and agreed upon by patient/family including requesting consultants and ordering of imaging/procedures. Plan discussed with: Patient NYHA Physical activity limitations: Class2(Slight)fatigue,sob Date of Service: Jan 15, 2025 Billing Provider: DANIEL MORA Cardiology Common Codes: [id number] INP/OBS CARE (High), [id number] CARE 30-74 MIN DANIEL MORA Jan 15, 2025 14:26
[2025-01-15] MEDS: LORazepam 2MG/ML-1ML VIAL IV PRN (14:38)
[2025-01-15] MEDS: AMIODARONE 360mg/200mL PREMIX 200 ML IV ONE (15:38)
[2025-01-15] MEDS: METOPROLOL TARTRATE 50 MG TAB PO ONE (15:41)
--- NOTE | 2025-01-15 17:53 | DVHSR ---
APPROVED REPORT EXAM: LIMITED Two-dimensional and M-mode echocardiogram with Doppler and color Doppler. Blood Pressure: 114/93 mmHg INDICATION Atrial Fibrillation RISK FACTORS Obesity: Height: 5'10", Weight: 285 DIMENSIONS LVDd4.3 (3.8-5.7cm)LA (2D) (1.9-4.0cm)Aortic Root3.3 (2.0-3.7cm) LVDs3.1 (2.5-4.0cm)LA (MM) (1.9-4.0cm)Aortic Cusp Exc1.8 (1.5-2.0cm) EF (%) 55.0 (55-70%)Rt. Atrium (1.9-4.0cm)Asc. Aorta cm IVSd1.5 (0.7-1.1cm)RV (D) (1.8-2.4cm) PWd1.8 (0.7-1.1cm) Mitral Valve MitralMitral Stenosis E/A ratio0.02D MVAcm2 Aortic Valve Aortic ValveAortic Stenosis LVOT Diameter2.4 (1.8-2.4cm)Doppler AVAcm2 2D AVA3.70cm2 Pulmonic Valve V21.24m/s Other Information Quality : Technically LimitedRhythm : Atrial Fibrillation Technically limited study due to body habitus, patient position, patient altered and uncooperative. Conclusion Technically limited study secondary to poor acoustic windows. Left ventricle: Concentric left ventricular hypertrophy was seen. Anterior hypokinesia and thinning points toward ischemic cardiomyopathy. LVEF was 55-60%. A limited available views, right ventricle was normal-sized with normal systolic function.. Right at rium was not well visualized. Left atrium was mildly dilated. Aortic valve was trileaflet. There was no aortic insufficiency/stenosis. There was no mitral regurg itation. Tricuspid valve was not well visualized. Pulmonary valve was not well visualized. As there was no good tricuspid regurgitation jet, right ventricular systolic pressure could not be es timated. Small posterior pericardial effusion was observed.
[2025-01-15] MEDS: TAMSULOSIN HYDROCHLORIDE 0.4 MG CAP PO SCH (18:10)
[2025-01-15 19:50] VITALS: PULSE 115; RESP 24; O2SAT 94
[2025-01-15] MEDS: ACETAMINOPHEN 325 MG TAB PO PRN (20:38)
[2025-01-15] MEDS: HYDROcodone-ACET 5/325MG TAB PO PRN (20:38)
[2025-01-15] MEDS: METOPROLOL TARTRATE 50 MG TAB PO SCH (23:00)
[2025-01-16 04:17] LABS: Hematocrit 37.8 % (41.0-53.0); Hemoglobin 12.1 g/dL (13.5-17.5); Mean Corpuscular Hemoglobin 24.1 pg (28.0-32.0); Mean Corpuscular Volume 75.3 fL (80.0-100.0); Nucleated Red Blood Cells % 0.1 %
[2025-01-16 04:40] LABS: Calcium 9.6 mg/dL (8.7-10.4); Chloride 106 mmol/L (98-107); Sodium 139 mmol/L (136-145)
[2025-01-16 04:41] LABS: Anion Gap 9 (5-15); Carbon Dioxide 24 mmol/L (20-31)
[2025-01-16 04:42] LABS: Potassium 3.5 mmol/L (3.5-5.1)
[2025-01-16 04:46] LABS: BUN/Creatinine Ratio 15.0 (10.0-20.0); Blood Urea Nitrogen 19 mg/dL (9-23); Glucose 147 mg/dL (74-106)
[2025-01-16 08:00] VITALS: PULSE 105; RESP 19; O2SAT 98
[2025-01-16] MEDS: CLOPIDOGREL BISULFATE 75 MG TAB PO SCH (08:44)
--- NOTE | 2025-01-16 11:44 | DVHPN2 ---
Consult Progress Note Subjective Patient reports: Feels better Objective vital signs Vital Sign Date Time Temp Pulse Resp B/P (MAP) Pulse Ox O2 Delivery O2 Flow Rate FiO2 01/16/25 10:27 89 22 101/71 (81) 98 01/16/25 08:00 Nasal Cannula* 2 28 01/15/25 19:55 98.6 98.6 Total Intake and Output 01/15/25 01/15/25 01/16/25 15:00 23:00 07:00 Intake Total 249.97 ml 99.9 ml Balance 249.97 ml 99.9 ml medications Current Medications Medications Dose Ordered Sig/Stephen Route Start Time Stop Time Status Last Admin Dose Admin Duloxetine HCl 60 mg DAILY PO 01/15/25 10:00 01/16/25 08:43 60 MG Tamsulosin HCl 0.4 mg QPM PO 01/15/25 18:00 01/15/25 18:10 0.4 MG Atorvastatin Calcium 40 mg HS PO 01/14/25 22:00 01/15/25 23:36 40 MG Levetiracetam 100 ml @ 400 mls/hr BID IV 01/14/25 22:00 01/16/25 10:22 400 MLS/HR Lisinopril 20 mg DAILY PO 01/15/25 10:00 01/16/25 08:45 20 MG Gabapentin 300 mg BID PO 01/14/25 22:00 01/16/25 08:44 300 MG Ceftriaxone Sodium 50 ml @ 100 mls/hr DAILY@09 IV 01/15/25 09:00 01/16/25 10:42 100 MLS/HR Hydralazine HCl 10 mg Q6HP PRN IV 01/14/25 21:30 01/15/25 16:49 10 MG Apixaban 5 mg BID PO 01/14/25 22:00 01/16/25 08:43 5 MG Diagnostic Test (Pha) 1 strip IQ4HR 01/15/25 00:00 01/16/25 08:37 1 STRIP Insulin Human Regular IQ4HR SC 01/15/25 00:00 01/16/25 08:42 2 UNITS Dextrose 50 ml UD PRN IV 01/14/25 21:30 Sodium Chloride 10 ml Q8HR IV 01/14/25 22:00 01/16/25 08:37 10 ML Acetaminophen/ Hydrocodone Bitart 1 tab Q4HP PRN PO 01/14/25 21:30 01/16/25 08:46 1 TAB Ondansetron HCl 4 mg Q4HP PRN IV 01/14/25 21:30 Docusate Sodium 100 mg BIDPRN PRN PO 01/14/25 21:30 Acetaminophen 650 mg Q6HP PRN PO 01/14/25 21:30 01/15/25 21:55 650 MG Nitroglycerin 0.4 mg Q5MINP PRN SL 01/14/25 22:45 Morphine Sulfate 2 mg Q30M PRN IV 01/14/25 22:45 Lorazepam 0.5 mg Q8HP PRN IV 01/15/25 13:00 01/15/25 23:43 0.5 MG Metoprolol Tartrate 50 mg BID PO 01/15/25 22:00 01/16/25 08:44 50 MG Nifedipine 30 mg DAILY PO 01/16/25 10:00 01/16/25 08:45 30 MG Clopidogrel Bisulfate 75 mg DAILY PO 01/16/25 10:00 01/16/25 08:44 75 MG Examination: CVS:Abnormal (Tele reviewed consistent with Atrial Fibrillation at 104 bpm) laboratory and microbiology Laboratory Tests 01/16/25 03:59 Test 01/16/25 03:59 Range/Units Serum Glucose 147 H 74-106 mg/dL Problem List/Assessment/Plan Problem List/Assessment/Plan Assessment * Persistent atrial fibrillation with episode of RVR - Continue rate control with metoprolol 50 mg PO twice daily. Titrate as tolerated. On Eliquis 5 mg p.o. twice daily for stroke prophylaxis. Normal TSH. * Chronic HFpEF - BNP 265. CXR negative for congestion/edema. Patient breathing stable on room air. Continue monitoring fluid volume status. * CAD s/p stent to LAD - continue on Plavix and statin. * Opiate overdose, AMS - CT head negative. Management per primary team. * Uncontrolled HTN - continue metoprolol 50 mg p.o. twice daily. On lisinopril 20 mg p.o. daily, titrate as tolerated. Case Discussed with Dr Pires. Continue metoprolol 50mg po twice daily. Continue with PRN metoprolol IV as BP and HR tolerates. ECHO with EF 55-60%, anterior hypokinesia and thinning points towards ischemic cardiomyopathy.TSH normal This medical document was created using an electronic medical record system with voice recognition software and computerized dictation system. Although this document has been carefully reviewed, there might still be some phonetic and typographical errors. Occasional wrong-word or ``sound-alike substitutions may have occurred due to the inherent limitations of voice recognition software. These areas are purely typographical due to imperfections of the software programs and do not reflect any compromise in the patient's medical care. Please read the chart carefully and recognize, using context, where these substitutions have occurred. Thank you for allowing me to participate in the management of this patient. The treatment plan was discussed with and agreed upon by patient/family including requesting consultants and ordering of imaging/procedures. Plan discussed with: Patient, Spouse Date of Service: Jan 16, 2025 Billing Provider: DANIEL MORA Common Visit Codes: [id number] INP/OBS CARE(HIGH) DANIEL MORA Jan 16, 2025 11:44
--- NOTE | 2025-01-16 13:14 | DVHPN2 ---
Subjective His mentation has improved today. Head CT no acute pathology. Evaluated by Cardiology and heart rate is in the 80s to 90s. Started on beta-luis. Continue Eliquis. Changes from previous H/P or p: No Changes Eyes: No Pain, No Vision change, No Conjunctivae inflammation, No Eyelid inflammation, No Other, No Redness ENT: No Ear pain, No Ear discharge, No Nose pain, No Nose discharge, No Nose congestion, No Mouth pain, No Mouth swelling, No Throat pain, No Throat swelling, No Other Cardiovascular: No Chest Pain, No Palpitations, No Orthopnea, No Paroxysmal Noc. Dyspnea, No Edema, No Lt Headedness, No Other Respiratory: No Cough, No Dry, No Shortness of breath, No SOB with excertion, No Wheezing, No Hemoptysis, No Pleuritic Pain, No Sputum, No Other Gastrointestinal: No Nausea, No Vomiting, No Abdominal Pain, No Diarrhea, No Constipation, No Melena, No Hematochezia, No Other Genitourinary: No Dysuria, No Frequency, No Incontinence, No Hematuria, No Retention, No Other Musculoskeletal: No other, No neck pain, No shoulder pain, No arm pain, No back pain, No hand pain, No leg pain, No foot pain Skin: No Rash, No Lesions, No Jaundice, No Bruising, No Other Objective Vitals Vital Signs Date Time Temp Pulse Resp B/P (MAP) Pulse Ox O2 Delivery O2 Flow Rate FiO2 01/16/25 12:00 83 20 136/92 (107) 97 01/16/25 08:00 Nasal Cannula* 2 28 01/15/25 19:55 98.6 98.6 Intake/Output Intake and Output 01/16/25 07:00 Intake Total 349.87 ml Balance 349.87 ml Intake IV Total 349.87 ml Exam Comfortable lying in bed not agitated today. Alert awake oriented to name. Heart irregular rate and rhythm S1 plus S2. Lungs fair air movement poor inspiratory effort. Abdomen obese soft positive bowel sounds. Extremities no edema. Medications Current Medications Medications Dose Ordered Sig/Stephen Route Start Time Stop Time Status Last Admin Dose Admin Duloxetine HCl 60 mg DAILY PO 01/15/25 10:00 01/16/25 08:43 60 MG Tamsulosin HCl 0.4 mg QPM PO 01/15/25 18:00 01/15/25 18:10 0.4 MG Atorvastatin Calcium 40 mg HS PO 01/14/25 22:00 01/15/25 23:36 40 MG Levetiracetam 100 ml @ 400 mls/hr BID IV 01/14/25 22:00 01/16/25 10:22 400 MLS/HR Lisinopril 20 mg DAILY PO 01/15/25 10:00 01/16/25 08:45 20 MG Gabapentin 300 mg BID PO 01/14/25 22:00 01/16/25 08:44 300 MG Ceftriaxone Sodium 50 ml @ 100 mls/hr DAILY@09 IV 01/15/25 09:00 01/16/25 10:42 100 MLS/HR Hydralazine HCl 10 mg Q6HP PRN IV 01/14/25 21:30 01/15/25 16:49 10 MG Apixaban 5 mg BID PO 01/14/25 22:00 01/16/25 08:43 5 MG Diagnostic Test (Pha) 1 strip IQ4HR 01/15/25 00:00 01/16/25 12:03 1 STRIP Insulin Human Regular IQ4HR SC 01/15/25 00:00 01/16/25 11:56 6 UNITS Dextrose 50 ml UD PRN IV 01/14/25 21:30 Sodium Chloride 10 ml Q8HR IV 01/14/25 22:00 01/16/25 08:37 10 ML Acetaminophen/ Hydrocodone Bitart 1 tab Q4HP PRN PO 01/14/25 21:30 01/16/25 08:46 1 TAB Ondansetron HCl 4 mg Q4HP PRN IV 01/14/25 21:30 Docusate Sodium 100 mg BIDPRN PRN PO 01/14/25 21:30 Acetaminophen 650 mg Q6HP PRN PO 01/14/25 21:30 01/15/25 21:55 650 MG Nitroglycerin 0.4 mg Q5MINP PRN SL 01/14/25 22:45 Morphine Sulfate 2 mg Q30M PRN IV 01/14/25 22:45 Lorazepam 0.5 mg Q8HP PRN IV 01/15/25 13:00 01/15/25 23:43 0.5 MG Metoprolol Tartrate 50 mg BID PO 01/15/25 22:00 01/16/25 08:44 50 MG Nifedipine 30 mg DAILY PO 01/16/25 10:00 01/16/25 08:45 30 MG Clopidogrel Bisulfate 75 mg DAILY PO 01/16/25 10:00 01/16/25 08:44 75 MG Laboratory Results Laboratory Tests 01/16/25 03:59 Chemistry Test 01/16/25 03:59 Calcium Level 9.6 mg/dL (8.7-10.4) Urinalysis Test 01/15/25 00:26 Urine Color Light-yellow (Yellow) Urine Clarity Clear (Clear) Urine pH 6.5 (5.0-9.0) Urine Specific [place] 1.029 (1.001-1.035) Urine Protein 1+ (Negative) H Urine Ketones 2+ (Negative) H Urine Blood Negative /uL (Negative) Urine Nitrite Negative (Negative) Urine Bilirubin Negative (Negative) Urine Urobilinogen Normal mg/dL (Negative) Urine Leukocyte Esterase Negative /uL (Negative) Urine RBC 3 /hpf (0 - 3) Urine Microscopic WBC 1 /HPF (0-3) Urine Squamous Epithelial Cells None seen /hpf (<5) Urine Bacteria None seen /hpf (None Seen) Urine Glucose 4+ mg/dL (Normal) H Microbiology Microbiology Date/Time Source Procedure Growth Status 01/14/25 22:26 Blood Blood Culture - Preliminary NO GROWTH AFTER 24 HOURS OF INCUBATION. Resulted Assessment/Plan Assessment/Plan Titrate and taper off amiodarone drip if heart rate remains below 100. Continue beta-luis and Procardia. Continue Eliquis. Physical therapy evaluation. Continue antibiotics and rest of supportive care and treatment. Further clinical management per clinical course. Discussed with the nurse regarding care plan. Plan discussed with: Patient, Other My Orders Orders - LATONYA ALONSO MD Procedure Category Date Status Time Pt Request For Service PT 01/16/25 Transmitted 13:09 Basic Metabolic Panel LAB 01/17/25 Verified 04:00 Complete Blood Count LAB 01/17/25 Verified 04:00 Magnesium LAB 01/17/25 Verified 04:00 Potassium Er Tablet PHA 01/16/25 Transmitted (Klor-Con Tablet) 13:15 Magnesium Oxide PHA 01/16/25 Transmitted Tablet (Mag-Ox Tablet) 22:00 Problem List: (1) Altered mental status (2) Atrial fibrillation (3) Generalized weakness (4) Leukocytosis, unspecified (5) Atrial fibrillation with RVR Date of Service: Jan 16, 2025 Billing Provider: LATONYA ALONSO MD Common Visit Codes: [id number] INP/OBS CARE(MOD) LATONYA ALONSO MD Jan 16, 2025 13:13
[2025-01-16] MEDS: POTASSIUM CHL 20 Meq TABLET PO ONE (14:14)
[2025-01-16 22:20] VITALS: BP 98/65; PULSE 107; RESP 14; TEMP 97.9; O2SAT 94
[2025-01-16] MEDS: MAGNESIUM OXIDE 400 MG TAB PO SCH (22:32)
[2025-01-17] VITALS (8 sets, daily range): BP systolic 98–134; BP diastolic 66–99; PULSE 62–104; RESP 18–20; TEMP 96.9–98.2; O2SAT 96–99
[2025-01-17 07:32] LABS: Anion Gap 9 (5-15); Carbon Dioxide 25 mmol/L (20-31); Chloride 107 mmol/L (98-107); Potassium 4.1 mmol/L (3.5-5.1); Sodium 141 mmol/L (136-145)
[2025-01-17 07:32] LABS: Hematocrit 37.3 % (41.0-53.0); Hemoglobin 12.1 g/dL (13.5-17.5); Mean Corpuscular Hemoglobin 24.4 pg (28.0-32.0); Mean Corpuscular Volume 75.0 fL (80.0-100.0); Nucleated Red Blood Cells % 0.0 %
[2025-01-17 07:34] LABS: Calcium 9.6 mg/dL (8.7-10.4)
[2025-01-17 07:39] LABS: BUN/Creatinine Ratio 18.5 (10.0-20.0); Blood Urea Nitrogen 25 mg/dL (9-23); Glucose 171 mg/dL (74-106); Magnesium 2.2 mg/dL (1.6-2.6)
[2025-01-17 10:14] LABS: Hepatitis B Surface Antigen Negative (Negative)
[2025-01-17 10:38] LABS: Hepatitis C Antibody Negative (Negative)
--- NOTE | 2025-01-17 12:19 | DVHPN2 ---
Consult Progress Note Subjective Other Systems: The patient remains in atrial fibrillation with controlled heart rate at time of assessment. Objective vital signs Vital Sign Date Time Temp Pulse Resp B/P (MAP) Pulse Ox O2 Delivery O2 Flow Rate FiO2 01/17/25 09:29 126/84 01/17/25 09:21 79 01/17/25 09:00 98.1 18 96 98.1 01/17/25 08:00 Room Air* 0 21 Total Intake and Output 01/16/25 01/16/25 01/17/25 15:00 23:00 07:00 Intake Total 150 ml 100 ml 300 ml Balance 150 ml 100 ml 300 ml medications Current Medications Medications Dose Ordered Sig/Stephen Route Start Time Stop Time Status Last Admin Dose Admin Duloxetine HCl 60 mg DAILY PO 01/15/25 10:00 01/17/25 09:19 60 MG Tamsulosin HCl 0.4 mg QPM PO 01/15/25 18:00 01/16/25 17:08 0.4 MG Atorvastatin Calcium 40 mg HS PO 01/14/25 22:00 01/16/25 22:32 40 MG Lisinopril 20 mg DAILY PO 01/15/25 10:00 01/17/25 09:20 20 MG Gabapentin 300 mg BID PO 01/14/25 22:00 01/17/25 09:19 300 MG Ceftriaxone Sodium 50 ml @ 100 mls/hr DAILY@09 IV 01/15/25 09:00 01/17/25 09:22 100 MLS/HR Hydralazine HCl 10 mg Q6HP PRN IV 01/14/25 21:30 01/15/25 16:49 10 MG Apixaban 5 mg BID PO 01/14/25 22:00 01/17/25 09:20 5 MG Diagnostic Test (Pha) 1 strip IQ4HR 01/15/25 00:00 01/17/25 09:22 1 STRIP Insulin Human Regular IQ4HR SC 01/15/25 00:00 01/17/25 11:49 4 UNITS Dextrose 50 ml UD PRN IV 01/14/25 21:30 Sodium Chloride 10 ml Q8HR IV 01/14/25 22:00 01/17/25 04:31 10 ML Acetaminophen/ Hydrocodone Bitart 1 tab Q4HP PRN PO 01/14/25 21:30 01/17/25 11:40 1 TAB Ondansetron HCl 4 mg Q4HP PRN IV 01/14/25 21:30 Docusate Sodium 100 mg BIDPRN PRN PO 01/14/25 21:30 Acetaminophen 650 mg Q6HP PRN PO 01/14/25 21:30 01/16/25 23:46 650 MG Nitroglycerin 0.4 mg Q5MINP PRN SL 01/14/25 22:45 Morphine Sulfate 2 mg Q30M PRN IV 01/14/25 22:45 Lorazepam 0.5 mg Q8HP PRN IV 01/15/25 13:00 01/15/25 23:43 0.5 MG Metoprolol Tartrate 50 mg BID PO 01/15/25 22:00 01/17/25 09:21 50 MG Nifedipine 30 mg DAILY PO 01/16/25 10:00 01/17/25 09:29 30 MG Clopidogrel Bisulfate 75 mg DAILY PO 01/16/25 10:00 01/17/25 09:20 75 MG Magnesium Oxide 400 mg BID PO 01/16/25 22:00 01/17/25 09:20 400 MG Insulin Human NPH 20 units IBID SC 01/17/25 18:00 Levetiracetam 500 mg BID PO 01/17/25 22:00 Examination: GENERAL:Normal, LUNGS:Normal, CVS:Abnormal (Irregularly irregular. Atrial fibrillation), NEURO:Normal laboratory and microbiology Laboratory Tests 01/17/25 06:34 01/17/25 06:24 Test 01/17/25 06:34 Range/Units Serum Glucose 171 H 74-106 mg/dL Problem List/Assessment/Plan Problem List/Assessment/Plan Atrial fibrillation with episodes RVR, likely persistent Chronic HFpEF, NYHA class II Coronary artery disease s/p PTCA X 2 PREM to LAD (on Plavix) Hypertension Dyslipidemia Opiate overdose Plan/recommendations (Dr. Gallegos): Transthoracic echocardiogram reveals an EF of 55-60% with anterior hypokinesia and thinning points towards ischemic cardiomyopathy. [id number] score: 4 points, HAS-BLED: 2 points. Continue with the beta-luis for rate control and up titrate as tolerated. Continue with NOAC therapy, Eliquis. Monitor and replete electrolytes as needed. Continue with single antiplatelet therapy and lipid-lowering agent. Blood pressure control as tolerated. Close cardiac surveillance. Thank you for allowing us to care for this patient. Please call with any questions or concerns. This medical document was created using an electronic medical record system with voice recognition software and computerized dictation system. Although this document has been carefully reviewed, there might still be some phonetic and typographical errors. Occasional wrong-word or ``sound-alike substitutions may have occurred due to the inherent limitations of voice recognition software. These areas are purely typographical due to imperfections of the software programs and do not reflect any compromise in the patient's medical care. Please read the chart carefully and recognize, using context, where these substitutions have occurred. Plan discussed with: Patient Date of Service: Jan 17, 2025 Billing Provider: LAMAR VÁZQUEZ Common Visit Codes: [id number] INP/OBS CARE(HIGH) LAMAR VÁZQUEZ Jan 17, 2025 12:19
--- NOTE | 2025-01-17 12:51 | ECG ---
[facility] Test Date: 2025-01-14 Test Time: 21:31:06 Pat Name: DENA ROSALES Department: ER Room: 0221T A Gender: M Extruder Tender: ANNY : 1950 Requested By: SABRA MCKENNA Order Number: [id number] Reading MD: Pantera Mast Measurements Intervals [place] Rate: 144 P: 0 SC: 0 QRS: 92 QRSD: 86 T: 56 QT: 295 QTc: 457 Interpretive Statements Atrial fibrillation Ventricular premature complex Anterior infarct, old ST depression, probably rate related Electronically Signed On 01-17-2025 19:23:42 PDT by Pantera Mast Please click the below link to view image of tracing.
--- NOTE | 2025-01-17 12:51 | ECG ---
[facility] Test Date: 2025-01-15 Test Time: 02:19:14 Pat Name: DENA ROSALES Department: ED Room: 0221T A Gender: M Prize Fighter: [id number] : 1950 Requested By: SABRA MCKENNA Order Number: [id number] Reading MD: Pnatera Mats Measurements Intervals [place] Rate: 138 P: 0 MA: 0 QRS: -13 QRSD: 85 T: 139 QT: 321 QTc: 487 Interpretive Statements Atrial fibrillation Ventricular premature complex Anterior infarct, old Repolarization abnormality, prob rate related Electronically Signed On 01-17-2025 19:25:05 PDT by Pantera Mast Please click the below link to view image of tracing.
--- NOTE | 2025-01-17 13:15 | DVHPN2 ---
Subjective Participating with the physical therapy today with a walker. Feels a little stronger. Heart rate is controlled but in AFib. Changes from previous H/P or p: No Changes Eyes: No Pain, No Vision change, No Conjunctivae inflammation, No Eyelid inflammation, No Other, No Redness ENT: No Ear pain, No Ear discharge, No Nose pain, No Nose discharge, No Nose congestion, No Mouth pain, No Mouth swelling, No Throat pain, No Throat swelling, No Other Cardiovascular: No Chest Pain, No Palpitations, No Orthopnea, No Paroxysmal Noc. Dyspnea, No Edema, No Lt Headedness, No Other Respiratory: No Cough, No Dry, No Shortness of breath, No SOB with excertion, No Wheezing, No Hemoptysis, No Pleuritic Pain, No Sputum, No Other Gastrointestinal: No Nausea, No Vomiting, No Abdominal Pain, No Diarrhea, No Constipation, No Melena, No Hematochezia, No Other Genitourinary: No Dysuria, No Frequency, No Incontinence, No Hematuria, No Retention, No Other Musculoskeletal: No other, No neck pain, No shoulder pain, No arm pain, No back pain, No hand pain, No leg pain, No foot pain Skin: No Rash, No Lesions, No Jaundice, No Bruising, No Other Objective Vitals Vital Signs Date Time Temp Pulse Resp B/P (MAP) Pulse Ox O2 Delivery O2 Flow Rate FiO2 01/17/25 09:29 126/84 01/17/25 09:21 79 01/17/25 09:00 98.1 18 96 98.1 01/17/25 08:00 Room Air* 0 21 Intake/Output Intake and Output 01/17/25 07:00 Intake Total 550 ml Balance 550 ml Intake Oral 300 ml IV Total 250 ml # Voids 2 Exam Sitting at the edge of the bed. Alert awake oriented to place and person comfortable without distress. HEENT neck supple no JVD. Pupils equal round react to light. Heart irregular rate and rhythm S1 plus S2. Lungs fair air movement poor inspiratory effort. Abdomen obese soft positive bowel sounds. Extremities no edema. Medications Current Medications Medications Dose Ordered Sig/Stephen Route Start Time Stop Time Status Last Admin Dose Admin Duloxetine HCl 60 mg DAILY PO 01/15/25 10:00 01/17/25 09:19 60 MG Tamsulosin HCl 0.4 mg QPM PO 01/15/25 18:00 01/16/25 17:08 0.4 MG Atorvastatin Calcium 40 mg HS PO 01/14/25 22:00 01/16/25 22:32 40 MG Lisinopril 20 mg DAILY PO 01/15/25 10:00 01/17/25 09:20 20 MG Gabapentin 300 mg BID PO 01/14/25 22:00 01/17/25 09:19 300 MG Ceftriaxone Sodium 50 ml @ 100 mls/hr DAILY@09 IV 01/15/25 09:00 01/17/25 09:22 100 MLS/HR Hydralazine HCl 10 mg Q6HP PRN IV 01/14/25 21:30 01/15/25 16:49 10 MG Apixaban 5 mg BID PO 01/14/25 22:00 01/17/25 09:20 5 MG Diagnostic Test (Pha) 1 strip IQ4HR 01/15/25 00:00 01/17/25 09:22 1 STRIP Insulin Human Regular IQ4HR SC 01/15/25 00:00 01/17/25 11:49 4 UNITS Dextrose 50 ml UD PRN IV 01/14/25 21:30 Sodium Chloride 10 ml Q8HR IV 01/14/25 22:00 01/17/25 04:31 10 ML Acetaminophen/ Hydrocodone Bitart 1 tab Q4HP PRN PO 01/14/25 21:30 01/17/25 11:40 1 TAB Ondansetron HCl 4 mg Q4HP PRN IV 01/14/25 21:30 Docusate Sodium 100 mg BIDPRN PRN PO 01/14/25 21:30 Acetaminophen 650 mg Q6HP PRN PO 01/14/25 21:30 01/16/25 23:46 650 MG Nitroglycerin 0.4 mg Q5MINP PRN SL 01/14/25 22:45 Morphine Sulfate 2 mg Q30M PRN IV 01/14/25 22:45 Lorazepam 0.5 mg Q8HP PRN IV 01/15/25 13:00 01/15/25 23:43 0.5 MG Metoprolol Tartrate 50 mg BID PO 01/15/25 22:00 01/17/25 09:21 50 MG Nifedipine 30 mg DAILY PO 01/16/25 10:00 01/17/25 09:29 30 MG Clopidogrel Bisulfate 75 mg DAILY PO 01/16/25 10:00 01/17/25 09:20 75 MG Magnesium Oxide 400 mg BID PO 01/16/25 22:00 01/17/25 09:20 400 MG Insulin Human NPH 20 units IBID SC 01/17/25 18:00 Levetiracetam 500 mg BID PO 01/17/25 22:00 Laboratory Results Laboratory Tests 01/17/25 06:24 01/17/25 06:34 Chemistry Test 01/17/25 06:34 Calcium Level 9.6 mg/dL (8.7-10.4) Magnesium Level 2.2 mg/dL (1.6-2.6) Urinalysis Test 01/15/25 00:26 Urine Color Light-yellow (Yellow) Urine Clarity Clear (Clear) Urine pH 6.5 (5.0-9.0) Urine Specific [place] 1.029 (1.001-1.035) Urine Protein 1+ (Negative) H Urine Ketones 2+ (Negative) H Urine Blood Negative /uL (Negative) Urine Nitrite Negative (Negative) Urine Bilirubin Negative (Negative) Urine Urobilinogen Normal mg/dL (Negative) Urine Leukocyte Esterase Negative /uL (Negative) Urine RBC 3 /hpf (0 - 3) Urine Microscopic WBC 1 /HPF (0-3) Urine Squamous Epithelial Cells None seen /hpf (<5) Urine Bacteria None seen /hpf (None Seen) Urine Glucose 4+ mg/dL (Normal) H Microbiology Microbiology Date/Time Source Procedure Growth Status 01/14/25 22:26 Blood Blood Culture - Preliminary NO GROWTH AFTER 48 HOURS OF INCUBATION. Resulted Assessment/Plan Assessment/Plan Continue current cardiac medications and anticoagulation. Social Service consultation to arrange safety evaluation at home and a walker. If he remains stable overnight discharge plan tomorrow. Discussed with the patient. Plan discussed with: Patient, Other My Orders Orders - LATONYA ALONSO MD Procedure Category Date Status Time Insulin Nph Isophane PHA 01/17/25 In Process (Human) (Novolin N) 18:00 Levetiracetam Tablet PHA 01/17/25 In Process (Keppra Tablet) 22:00 * Netbackup Administrator CONS 01/17/25 Transmitted Consult Problem List: (1) Leukocytosis, unspecified (2) Generalized weakness (3) Atrial fibrillation (4) Chronic pain syndrome (5) Altered mental status Date of Service: Jan 17, 2025 Billing Provider: LATONYA ALONSO MD Common Visit Codes: [id number] INP/OBS CARE(MOD) LATONYA ALONSO MD Jan 17, 2025 13:15
--- NOTE | 2025-01-17 16:12 | ECG ---
[facility] Test Date: 2025-01-14 Test Time: 20:05:15 Pat Name: DENA ROSALES Department: ED Room: 0221T A Gender: M Lab Support Tech: PH : 1950 Requested By: SABRA MCKENNA Order Number: [id number] Reading MD: Pantera Mast Measurements Intervals [place] Rate: 124 P: 0 VA: 0 QRS: -46 QRSD: 77 T: 77 QT: 310 QTc: 446 Interpretive Statements Atrial fibrillation Left anterior fascicular block Anterior infarct, old Nonspecific T abnormalities, lateral leads Electronically Signed On 01-17-2025 19:23:13 PDT by Pantera Mast Please click the below link to view image of tracing.
[2025-01-17] MEDS: INSULIN NPH Isophane (HUMAN) 1unit/0.01ml Susp(100units/ml) SC SCH (18:00)
[2025-01-17] MEDS: INSULIN LANTUS (GLARGINE) 1 /0.01ml (100units/ml) SC SCH (20:57)
[2025-01-17] MEDS: levETIRAcetam 500 MG TAB PO SCH (21:01)
--- NOTE | 2025-01-17 22:16 | DVHPN2 ---
Consult Progress Note Date Seen: Jan 17, 2025 Subjective Other Systems: Patient was seen and evaluated in follow up. The patient remains in atrial fibrillation with controlled heart rate at time of assessment. CBC is unremarakble. BUN 25, Glass Frame Fitter 1.35. Objective vital signs Vital Sign Date Time Temp Pulse Resp B/P (MAP) Pulse Ox O2 Delivery O2 Flow Rate FiO2 01/17/25 21:03 109 117/91 01/17/25 17:00 97.2 19 98 97.2 01/17/25 08:00 Room Air* 0 21 Total Intake and Output 01/16/25 01/16/25 01/17/25 15:00 23:00 07:00 Intake Total 150 ml 100 ml 300 ml Balance 150 ml 100 ml 300 ml medications Current Medications Medications Dose Ordered Sig/Stephen Route Start Time Stop Time Status Last Admin Dose Admin Duloxetine HCl 60 mg DAILY PO 01/15/25 10:00 01/17/25 09:19 60 MG Tamsulosin HCl 0.4 mg QPM PO 01/15/25 18:00 01/17/25 17:41 0.4 MG Atorvastatin Calcium 40 mg HS PO 01/14/25 22:00 01/17/25 21:01 40 MG Lisinopril 20 mg DAILY PO 01/15/25 10:00 01/17/25 09:20 20 MG Gabapentin 300 mg BID PO 01/14/25 22:00 01/17/25 21:03 300 MG Ceftriaxone Sodium 50 ml @ 100 mls/hr DAILY@09 IV 01/15/25 09:00 01/17/25 09:22 100 MLS/HR Hydralazine HCl 10 mg Q6HP PRN IV 01/14/25 21:30 01/15/25 16:49 10 MG Apixaban 5 mg BID PO 01/14/25 22:00 01/17/25 21:03 5 MG Diagnostic Test (Pha) 1 strip IQ4HR 01/15/25 00:00 01/17/25 20:00 1 STRIP Insulin Human Regular IQ4HR SC 01/15/25 00:00 01/17/25 20:47 8 UNITS Dextrose 50 ml UD PRN IV 01/14/25 21:30 Sodium Chloride 10 ml Q8HR IV 01/14/25 22:00 01/17/25 20:52 10 ML Acetaminophen/ Hydrocodone Bitart 1 tab Q4HP PRN PO 01/14/25 21:30 01/17/25 21:01 1 TAB Ondansetron HCl 4 mg Q4HP PRN IV 01/14/25 21:30 Docusate Sodium 100 mg BIDPRN PRN PO 01/14/25 21:30 Acetaminophen 650 mg Q6HP PRN PO 01/14/25 21:30 01/16/25 23:46 650 MG Nitroglycerin 0.4 mg Q5MINP PRN SL 01/14/25 22:45 Morphine Sulfate 2 mg Q30M PRN IV 01/14/25 22:45 Lorazepam 0.5 mg Q8HP PRN IV 01/15/25 13:00 01/15/25 23:43 0.5 MG Metoprolol Tartrate 50 mg BID PO 01/15/25 22:00 01/17/25 21:03 50 MG Nifedipine 30 mg DAILY PO 01/16/25 10:00 01/17/25 09:29 30 MG Clopidogrel Bisulfate 75 mg DAILY PO 01/16/25 10:00 01/17/25 09:20 75 MG Magnesium Oxide 400 mg BID PO 01/16/25 22:00 01/17/25 21:03 400 MG Levetiracetam 500 mg BID PO 01/17/25 22:00 01/17/25 21:01 500 MG Insulin Glargine 10 units BID@0700,2200 SC 01/17/25 22:00 01/17/25 20:57 10 UNITS Examination: GENERAL:Normal, HEENT:Normal, NECK:Normal, LUNGS:Normal, CVS:Abnormal (rregularly irregular. Atrial fibrillation)), ABDOMEN:Normal, MSK:Normal, SKIN:Normal, NEURO:Normal laboratory and microbiology Laboratory Tests 01/17/25 06:34 01/17/25 06:24 Test 01/17/25 06:34 Range/Units Serum Glucose 171 H 74-106 mg/dL Problem List/Assessment/Plan Problem List/Assessment/Plan Atrial fibrillation with episodes RVR, likely persistent Chronic HFpEF, NYHA class II Coronary artery disease s/p PTCA X 2 PREM to LAD (on Plavix) Hypertension Dyslipidemia Opiate overdose Plan/recommendations (Dr. Walker): Continued all current supportive medical care. Patient has been seen by Megan Mejía NP on my behalf. We have discussed the plan with the patient. Transthoracic echocardiogram reveals an EF of 55-60% with anterior hypokinesia and thinning points towards ischemic cardiomyopathy. [id number] score: 4 points, HAS-BLED: 2 points. Continue with the beta-luis for rate control and up titrate as tolerated. Continue with NOAC therapy, Eliquis. Monitor and replete electrolytes as needed. Continue with single antiplatelet therapy and lipid-lowering agent. Blood pressure control as tolerated. Close cardiac surveillance. Additional plan as per the hospital course. Plan discussed with: Patient Date of Service: Jan 17, 2025 Billing Provider: MIREYA WALKER MD Cardiology Common Codes: [id number] [facility] MIREYA WALKER MD Jan 17, 2025 22:16
[2025-01-18] VITALS (7 sets, daily range): BP systolic 123–140; BP diastolic 52–87; PULSE 62–151; RESP 17–19; TEMP 97.4–97.8; O2SAT 93–98
--- NOTE | 2025-01-18 10:24 | DVHPN2 ---
Consult Progress Note Subjective Other Systems: patient remains in Afib on cardiac exercise physiologist. Rate uncontrolled at time of assessment- RN to administer morning beta luis. Denies any cardiac symptoms at time of assessment. Objective vital signs Vital Sign Date Time Temp Pulse Resp B/P (MAP) Pulse Ox O2 Delivery O2 Flow Rate FiO2 01/18/25 09:00 97.4 62 18 130/75 (93) 97 97.4 01/18/25 08:30 Room Air* 0 21 Total Intake and Output 01/17/25 01/17/25 01/18/25 15:00 23:00 07:00 Intake Total 150 ml 980 ml 300 ml Balance 150 ml 980 ml 300 ml medications Current Medications Medications Dose Ordered Sig/Stephen Route Start Time Stop Time Status Last Admin Dose Admin Duloxetine HCl 60 mg DAILY PO 01/15/25 10:00 01/18/25 08:48 60 MG Tamsulosin HCl 0.4 mg QPM PO 01/15/25 18:00 01/17/25 17:41 0.4 MG Atorvastatin Calcium 40 mg HS PO 01/14/25 22:00 01/17/25 21:01 40 MG Lisinopril 20 mg DAILY PO 01/15/25 10:00 01/17/25 09:20 20 MG Gabapentin 300 mg BID PO 01/14/25 22:00 01/18/25 08:48 300 MG Ceftriaxone Sodium 50 ml @ 100 mls/hr DAILY@09 IV 01/15/25 09:00 01/18/25 08:47 100 MLS/HR Hydralazine HCl 10 mg Q6HP PRN IV 01/14/25 21:30 01/15/25 16:49 10 MG Apixaban 5 mg BID PO 01/14/25 22:00 01/18/25 08:47 5 MG Diagnostic Test (Pha) 1 strip IQ4HR 01/15/25 00:00 01/18/25 08:24 1 STRIP Insulin Human Regular IQ4HR SC 01/15/25 00:00 01/18/25 08:42 3 UNITS Dextrose 50 ml UD PRN IV 01/14/25 21:30 Sodium Chloride 10 ml Q8HR IV 01/14/25 22:00 01/18/25 05:07 10 ML Acetaminophen/ Hydrocodone Bitart 1 tab Q4HP PRN PO 01/14/25 21:30 01/18/25 08:48 1 TAB Ondansetron HCl 4 mg Q4HP PRN IV 01/14/25 21:30 Docusate Sodium 100 mg BIDPRN PRN PO 01/14/25 21:30 Acetaminophen 650 mg Q6HP PRN PO 01/14/25 21:30 01/16/25 23:46 650 MG Nitroglycerin 0.4 mg Q5MINP PRN SL 01/14/25 22:45 Morphine Sulfate 2 mg Q30M PRN IV 01/14/25 22:45 Lorazepam 0.5 mg Q8HP PRN IV 01/15/25 13:00 01/15/25 23:43 0.5 MG Metoprolol Tartrate 50 mg BID PO 01/15/25 22:00 01/17/25 21:03 50 MG Nifedipine 30 mg DAILY PO 01/16/25 10:00 01/18/25 08:47 30 MG Clopidogrel Bisulfate 75 mg DAILY PO 01/16/25 10:00 01/18/25 08:50 75 MG Magnesium Oxide 400 mg BID PO 01/16/25 22:00 01/18/25 08:48 400 MG Levetiracetam 500 mg BID PO 01/17/25 22:00 01/18/25 08:47 500 MG Insulin Glargine 10 units BID@0700,2200 SC 01/17/25 22:00 01/18/25 06:16 10 UNITS Examination: GENERAL:Normal, LUNGS:Normal, CVS:Abnormal (Atrial fibrillation with uncontrolled rate), NEURO:Normal laboratory and microbiology Laboratory Tests 01/17/25 06:34 01/17/25 06:24 Test 01/17/25 06:34 Range/Units Serum Glucose 171 H 74-106 mg/dL Problem List/Assessment/Plan Problem List/Assessment/Plan Atrial fibrillation with episodes RVR, likely persistent Chronic HFpEF, NYHA class II Coronary artery disease s/p PTCA X 2 PREM to LAD (on Plavix) Hypertension Dyslipidemia Opiate overdose Plan/recommendations (Dr. Gallegos): Transthoracic echocardiogram reveals an EF of 55-60% with anterior hypokinesia and thinning points towards ischemic cardiomyopathy. [id number] score: 4 points, HAS-BLED: 2 points. Continue with the beta-luis for rate control and up titrate as tolerated. Continue with NOAC therapy, Eliquis. Monitor and replete electrolytes as needed. Continue with single antiplatelet therapy and lipid-lowering agent. Blood pressure control as tolerated. Close cardiac surveillance. Thank you for allowing us to care for this patient. Please call with any questions or concerns. This medical document was created using an electronic medical record system with voice recognition software and computerized dictation system. Although this document has been carefully reviewed, there might still be some phonetic and typographical errors. Occasional wrong-word or ``sound-alike substitutions may have occurred due to the inherent limitations of voice recognition software. These areas are purely typographical due to imperfections of the software programs and do not reflect any compromise in the patient's medical care. Please read the chart carefully and recognize, using context, where these substitutions have occurred. Plan discussed with: Patient Date of Service: Jan 18, 2025 Billing Provider: LAMAR VÁZQUEZ Common Visit Codes: [id number] INP/OBS CARE(HIGH) LAMAR VÁZQUEZ Jan 18, 2025 10:24
[2025-01-18] MEDS ORDERED: APIX5TAB PO (11:39)
[2025-01-18] MEDS ORDERED: NIFE1TAB31 PO (11:39)
[2025-01-18] MEDS ORDERED: METO-158 PO (11:39)
--- NOTE | 2025-01-18 11:40 | DVHDS2 ---
Discharge Summary Date of Admission Jan 14, 2025 at 22:31 Date of Discharge: Jan 18, 2025 Labs/Diagnostic Data: Laboratory Results Test 01/18/25 11:17 01/18/25 08:05 01/17/25 06:34 01/17/25 06:24 POC Glucose 163 mg/dl (70-106) Magnesium Level 2.2 mg/dL (1.6-2.6) White Blood Count 9.5 10^3/uL (4.4-10.8) Red Blood Count 4.98 10^6/uL (4.5-5.90) Hemoglobin 12.1 g/dL (13.5-17.5) Hematocrit 37.3 % (41.0-53.0) Mean Corpuscular Volume 75.0 fL (80.0-100.0) Mean Corpuscular Hemoglobin 24.4 pg (28.0-32.0) Mean Corpuscular Hemoglobin Concent 32.5 g/dL (32.0-36.0) Red Cell Distribution Width 19.3 % (11.8-14.3) Platelet Count 261 10^3/uL (140-450) Mean Platelet Volume 7.7 fL (6.9-10.8) Neutrophils (%) (Auto) 68.1 % (37.0-80.0) Lymphocytes (%) (Auto) 15.7 % (10.0-50.0) Monocytes (%) (Auto) 11.4 % (0.0-12.0) Eosinophils (%) (Auto) 4.1 % (0.0-7.0) Basophils (%) (Auto) 0.7 % (0.0-2.0) Neutrophils # (Auto) 6.5 10 ^3/uL (1.6-8.6) Lymphocytes # (Auto) 1.5 10 ^3/uL (0.4-5.4) Monocytes # (Auto) 1.1 10 ^3/uL (0-1.3) Eosinophils # (Auto) 0.4 10 ^3/uL (0-0.8) Basophils # (Auto) 0.1 10 ^3/uL (0-0.2) Nucleated Red Blood Cells 0.0 % Hepatitis B Surface Antigen Negative (Negative) Hepatitis C Antibody Negative (Negative) Test 01/15/25 06:12 01/15/25 00:26 01/14/25 23:59 01/14/25 20:46 Total Bilirubin 0.8 mg/dL (0.2-1.0) Aspartate Amino Transferase (AST) 20 U/L (13-40) Alanine Aminotransferase (ALT) < 9 U/L (7-40) Alkaline Phosphatase 113 U/L (46-116) Total Protein 7.1 g/dL (5.7-8.2) Albumin 4.7 g/dL (3.2-4.8) Thyroid Stimulating Hormone (TSH) 2.51 uIU/mL (0.55-4.78) Free Thyroxine (T4) Calculated 1.26 ng/dL (0.89-1.76) Urine Color Light-yellow (Yellow) Urine Clarity Clear (Clear) Urine pH 6.5 (5.0-9.0) Urine Specific [place] 1.029 (1.001-1.035) Urine Protein 1+ (Negative) Urine Ketones 2+ (Negative) Urine Blood Negative /uL (Negative) Urine Nitrite Negative (Negative) Urine Bilirubin Negative (Negative) Urine Urobilinogen Normal mg/dL (Negative) Urine Leukocyte Esterase Negative /uL (Negative) Urine RBC 3 /hpf (0 - 3) Urine Microscopic WBC 1 /HPF (0-3) Urine Squamous Epithelial Cells None seen /hpf (<5) Urine Bacteria None seen /hpf (None Seen) Urine Glucose 4+ mg/dL (Normal) Urine Opiates Screen Neg (NEGATIVE) Urine Fentanyl Screen Neg (NEGATIVE) Urine Barbiturates Screen Neg (NEGATIVE) Urine Phencyclidine Screen Neg (NEGATIVE) Urine Amphetamines Screen Neg (NEGATIVE) Urine Benzodiazepines Screen Neg (NEGATIVE) Urine Cocaine Screen Neg (NEGATIVE) Urine Cannabinoids Screen Neg (NEGATIVE) Troponin I High Sensitivity 8 ng/L (</=54) Blood Gas Specimen Type Arterial Blood Gas Sample Site Right radial Blood Gas Patient Temperature 37.0 Arterial Blood Date Drawn [id number] Arterial Blood pH 7.514 (7.350-7.450) Arterial Blood Partial Pressure CO2 25.4 mmHg (35.0-48.0) Arterial Blood Partial Pressure O2 74.6 mmHg (83.0-108.0) Arterial Blood HCO3 20.0 mmol/L (21.0-28.0) Arterial Blood Oxygen Saturation 96.3 % (94.0-98.0) Arterial Blood Base Excess -1.3 mmol/L (-2.0-3.0) Arterial Blood Oxyhemoglobin 94.3 % (94.0-98.0) Arterial Blood Carboxyhemoglobin 1.9 % (0.5-1.5) Arterial Blood Methemoglobin 0.2 % (0.0-1.5) Saqib Test Yes Blood Gas Total Hemoglobin 14.40 g/dL (13.5-17.5) Blood Gas Modality Room air Blood Gas Spontaneous Rate 24 FiO2 % 21.0 Test 01/14/25 20:33 Lactic Acid Level 1.0 mmol/L (0.4-2.0) B-Type Natriuretic Peptide 265.01 pg/mL (0-100) Acetaminophen Level < 2.0 UG/ML (10.0-20.0) Plasma/Serum Blood Alcohol < 3.0 mg/dL (<10) Other Laboratory Tests 01/17/25 06:24 Brief Hx & Hospital Course: The patient is a 75-year-old male with multiple past medical history including AFib, DM, Coronary artery disease, NE, and hypertension who presented to [facility] ED for evaluation of confusion state. Patient's is concerned about possible drug overdose with oxycodone and Percocet. Patient has been lethargic, altered, screaming, and poor appetite. Patient was seen and evaluated in the ED, laboratory data shows WBC 14.0, platelets 159, sodium 143, potassium 3.8, BUN 13, creatinine 1.11, glucose 143, calcium 9.8, BNP 265.01, troponin 7, blood pressure 144/100, heart rate 64, temperature 98.2 F, O2 saturation 96% on room air. Chest x-ray revealing mild to moderate cardiomegaly, otherwise no evidence of acute cardiopulmonary disease. Please see medication orders section in the computer. On my assessment, patient denied chest pain, no headache no dizziness, no diaphoresis, shortness of breath, no nausea, no vomiting, no fever, no chills. Patient was admitted for further evaluation and medical management. He is admitted and started on IV amiodarone drip and subsequently evaluated by education administrator. Patient noted to be in atrial fibrillation with a rapid ventricular response. He is started on anticoagulation with the Eliquis. He is transitioned to oral metoprolol. With this his heart rate has controlled but still in AFib. Patient's mentation is back to normal baseline status. Patient counseled and educated regarding avoiding narcotics as much as possible. He is advised to follow up outpatient with primary care physician and referral to pain management for his chronic back pain and pain issues. Otherwise while in the hospital from cardiac point of view he remained normal. He is participating with the physical therapy and feeling better. He is tolerating diet. Therefore it is felt he could be safely discharged home. I have advised the patient to resume his home insulin regimen and check his blood sugars to keep it between 70 and 130. Also advised to check his heart rate and blood pressure to keep the heart rate between 70 and 100. Patient verbalized understanding of this, verbalized understanding his hospital diagnosis, treatment he received, discharge medications, discharge instructions and agree with the follow up plan of care as outlined. Consults/Reason for consult Assessment * Persistent atrial fibrillation with episode of RVR - continue amiodarone at 1 mg/min continuous infusion. On metoprolol 50 mg P twice daily. Titrate as tolerated. On Eliquis 5 mg p.o. twice daily for stroke prophylaxis. Check TSH/T4. * Chronic HFpEF - continue on Lasix 40 mg p.o. daily. BNP 265. CXR negative for congestion/edema. Patient breathing stable on room air. Continue monitoring fluid volume status. * CAD s/p stent to LAD - continue on Plavix and statin. * Opiate overdose, AMS - CT head negative. Management per primary team. * Uncontrolled HTN - continue metoprolol 50 mg p.o. twice daily. On lisinopril 20 mg p.o. daily, titrate as tolerated. Nifedipine 30 mg p.o. daily added. Case Discussed with Dr Haile. Continue Amiodarone drip at 1 mg/min. Started on metoprolol 50mg po twice daily. Nifedipine added. Continue with PRN metoprolol IV as BP and HR tolerates. Check ECHO, TSH, and FT4. Critical care, time spent: 40 minutes This medical document was created using an electronic medical record system with voice recognition software and computerized dictation system. Although this document has been carefully reviewed, there might still be some phonetic and typographical errors. Occasional wrong-word or ``sound-alike substitutions may have occurred due to the inherent limitations of voice recognition software. These areas are purely typographical due to imperfections of the software programs and do not reflect any compromise in the patient's medical care. Please read the chart carefully and recognize, using context, where these substitutions have occurred. Thank you for allowing me to participate in the management of this patient. The treatment plan was discussed with and agreed upon by patient/family including requesting consultants and ordering of imaging/procedures. Plan discussed with: Patient NYHA 2 Physical activity limitations: Class2(Slight)fatigue,sob Date of Service: Jan 15, 2025 Billing Provider: DANIEL MORA Cardiology Common Codes: [id number] INP/OBS CARE (High), [id number] CARE 30-74 MIN DANIEL MORA Jan 15, 2025 14:26 Operations or Procedures PROCEDURE(s): [facility]ID[facility] - ECHO 2D MODE CARDIAC DOP REASON: Atrial fibrillation ORDER NUMBER(s): [id number], ACCESSION NUMBER(s): [id number] APPROVED REPORT EXAM: LIMITED Two-dimensional and M-mode echocardiogram with Doppler and color Doppler. Blood Pressure: 114/93 mmHg INDICATION Atrial Fibrillation RISK FACTORS Obesity: Height: 5'10", Weight: 285 DIMENSIONS LVDd 4.3 (3.8-5.7cm) LA (2D) (1.9-4.0cm) Aortic Root 3.3 (2.0- 3.7cm) LVDs 3.1 (2.5-4.0cm) LA (MM) (1.9-4.0cm) Aortic Cusp Exc 1.8 (1.5- 2.0cm) EF (%) 55.0 (55-70%) Rt. Atrium (1.9-4.0cm) Asc. Aorta cm IVSd 1.5 (0.7-1.1cm) RV (D) (1.8-2.4cm) PWd 1.8 (0.7-1.1cm) Mitral Valve Mitral Mitral Stenosis E/A ratio 0.0 2D MVA cm2 Aortic Valve Aortic Valve Aortic Stenosis LVOT Diameter 2.4 (1.8-2.4cm) Doppler NOAH cm2 2D NOAH 3.70cm2 Pulmonic Valve V2 1.24m/s Other Information Quality : Technically Limited Rhythm : Atrial Fibrillation Technically limited study due to body habitus, patient position, patient altered and uncooperative. Conclusion Technically limited study secondary to poor acoustic windows. Left ventricle: Concentric left ventricular hypertrophy was seen. Anterior hypokinesia and thinning points toward ischemic cardiomyopathy. LVEF was 55- 60%. A limited available views, right ventricle was normal-sized with normal systolic function.. Right atrium was not well visualized. Left atrium was mildly dilated. Aortic valve was trileaflet. There was no aortic insufficiency/stenosis. There was no mitral regurgitation. Tricuspid valve was not well visualized. Pulmonary valve was not well visualized. As there was no good tricuspid regurgitation jet, right ventricular systolic pressure could not be estimated. Small posterior pericardial effusion was observed. SIGNED BY: BILLY HAILE MD SIGNED DATE/TIME: 01/15/25 8827 Condition at Discharge: Stable Final Diagnosis/Problems List Atrial fibrillation with rapid ventricular response, now controlled, atherosclerotic coronary artery disease, morbid obesity with a BMI 43, hypertension, BPH Discharge Disposition: Home Discharge Instruct/Medications Diet: Consistent carbohydrate, Cardiac 2g Na,low cholest Activity: No Restrictions, As Tolerated Follow Up/Referral: Primary care physician next week and education administrator after two weeks for atrial fibrillation. Medications: As prescribed and as per your home discharge med reconciliation list Continued Medications: Apixaban Base (Eliquis) 5 Mg Tab 1 TAB PO BID, #60 TAB (This prescription has been renewed) Atorvastatin Calcium (Atorvastatin Calcium) 80 Mg Tab 1 TAB PO DAILY Duloxetine Hcl (Cymbalta) 60 Mg Cap 60 MG PO BID, CAP Gabapentin (Gabapentin) 300 Mg Cap 1 CAP PO BID Insulin NPH (Human) (Isophane) (Humulin N) 100 Unit/Ml Inj 60 UNITS SC BID, INJ Insulin Regular (Human) (Humulin R U-500 Kwikpen) 500 Unit/Ml Inj 500 UNIT SC ACHS, INJ Levetiracetam (Levetiracetam) 500 Mg Tab 1 TAB PO BID Lisinopril (Lisinopril) 20 Mg Tab 1 TAB PO DAILY Metformin Hydrochloride (Metformin Hcl) 1,000 Mg Tab 1 TAB PO BID Metoprolol Tartrate (Metoprolol Tartrate) 50 Mg Tab 50 MG PO BID for 30 Days, #60 TAB 3 Refills (This prescription has been renewed) Nifedipine (Nifedipine Er) 30 Mg Tab 1 TAB PO BID, #60 TAB (This prescription has been renewed) Oxycodone HCl (Oxycontin) 15 Mg Tab 1 TAB PO [id number] PRN for PAIN SCALE 7 THRU 10 Pantoprazole Sodium Sesquihydr (Protonix) 40 Mg Tab 20 MG PO DAILY, #30 TAB Tadalafil (Tadalafil) 5 Mg Tab 1 TAB PO DAILY Tamsulosin Hcl (Tamsulosin Hcl) 0.4 Mg Cap 1 CAP PO DAILY Discontinued Medications: Propranolol HCl (Propranolol Hydrochloride) 40 Mg Tab 1 TAB PO BID Scheduled Apixaban Base (Eliquis), 1 TAB PO BID Atorvastatin Calcium (Atorvastatin Calcium), 1 TAB PO DAILY, (Reported) Duloxetine Hcl (Cymbalta), 60 MG PO BID, (Reported) Gabapentin (Gabapentin), 1 CAP PO BID, (Reported) Insulin NPH (Human) (Isophane) (Humulin N), 60 UNITS SC BID, (Reported) Insulin Regular (Human) (Humulin R U-500 Kwikpen), 500 UNIT SC ACHS, (Reported) Levetiracetam (Levetiracetam), 1 TAB PO BID, (Reported) Lisinopril (Lisinopril), 1 TAB PO DAILY, (Reported) Metformin Hydrochloride (Metformin Hcl), 1 TAB PO BID, (Reported) Metoprolol Tartrate (Metoprolol Tartrate), 50 MG PO BID Nifedipine (Nifedipine Er), 1 TAB PO BID Pantoprazole Sodium Sesquihydr (Protonix), 20 MG PO DAILY, (Reported) Tadalafil (Tadalafil), 1 TAB PO DAILY, (Reported) Tamsulosin Hcl (Tamsulosin Hcl), 1 CAP PO DAILY, (Reported) Scheduled PRN Oxycodone HCl (Oxycontin), 1 TAB PO [id number] PRN for PAIN SCALE 7 THRU 10, (Reported) Discontinued Medications Propranolol HCl (Propranolol Hydrochloride), 1 TAB PO BID, (Reported) Discharge Statement: "Patient was advised to return to the ER or call 911 if any headaches, dizziness, shortness of breath, chest pain, abdominal pain, bleeding, fevers, or worsening of medical condition. Patient was counseled about treatment plan, medications, possible side effects, patientverbalized understanding. All questions were answered to the best of my ability. This discharge took greater then 30 minutes in planning, reviewing documentation, counseling the patient, and discussing with other team members." ASSESSMENT ASSESSMENT Assessment Atrial fibrillation with rapid ventricular response, now controlled, atherosclerotic coronary artery disease, morbid obesity with a BMI 43, hypertension, BPH Date of Service: Jan 18, 2025 Billing Provider: LATONYA ALONSO MD Common Visit Codes: 26072-JSG/OBS DISCH DAY >30min LATONYA ALONSO MD Jan 18, 2025 11:40
[2025-01-18 11:45] LABS: Chloride 106 mmol/L (98-107); Potassium 4.5 mmol/L (3.5-5.1); Sodium 139 mmol/L (136-145)
[2025-01-18 11:46] LABS: Anion Gap 8 (5-15); Carbon Dioxide 25 mmol/L (20-31)
[2025-01-18 11:47] LABS: Calcium 10.3 mg/dL (8.7-10.4)
[2025-01-18 11:51] LABS: BUN/Creatinine Ratio 15.8 (10.0-20.0); Blood Urea Nitrogen 19 mg/dL (9-23)
[2025-01-18 11:52] LABS: Glucose 235 mg/dL (74-106)
--- NOTE | 2025-01-18 22:40 | DVHPN2 ---
Consult Progress Note Date Seen: Jan 18, 2025 Subjective Other Systems: Patient was seen and evaluated in follow up. The patient remains in Afib on chucker. Rate uncontrolled at time of assessment- RN to administer morning beta luis. Denies any cardiac symptoms at time of assessment. Telemetry reviewed. Objective vital signs Vital Sign Date Time Temp Pulse Resp B/P (MAP) Pulse Ox O2 Delivery O2 Flow Rate FiO2 01/18/25 14:24 75 130/75 01/18/25 13:22 97.4 18 93 01/18/25 08:30 Room Air* 0 21 Total Intake and Output 01/17/25 01/17/25 01/18/25 15:00 23:00 07:00 Intake Total 150 ml 980 ml 300 ml Balance 150 ml 980 ml 300 ml Examination: GENERAL:Normal, HEENT:Normal, NECK:Normal, LUNGS:Normal, CVS:Abnormal (Atrial fibrillation with uncontrolled rate), ABDOMEN:Normal, MSK:Normal, SKIN:Normal, NEURO:Normal laboratory and microbiology Laboratory Tests 01/18/25 11:17 01/17/25 06:24 Test 01/18/25 11:17 Range/Units Serum Glucose 235 H 74-106 mg/dL Problem List/Assessment/Plan Problem List/Assessment/Plan Atrial fibrillation with episodes RVR, likely persistent Chronic HFpEF, NYHA class II Coronary artery disease s/p PTCA X 2 PREM to LAD (on Plavix) Hypertension Dyslipidemia Opiate overdose Plan/recommendations (Dr. Walker): Continued all current supportive medical care. Transthoracic echocardiogram reveals an EF of 55-60% with anterior hypokinesia and thinning points towards ischemic cardiomyopathy. [id number] score: 4 points, HAS-BLED: 2 points. Continue with the beta-luis for rate control and up titrate as tolerated. Continue with NOAC therapy, Eliquis. Monitor and replete electrolytes as needed. Continue with single antiplatelet therapy and lipid-lowering agent. Blood pressure control as tolerated. Close cardiac surveillance. Additional plan as per the hospital course. Plan discussed with: Patient Date of Service: Jan 18, 2025 Billing Provider: MIREYA WALKER MD Cardiology Common Codes: [id number] HOSP CARE(High MIREYA WALKER MD Jan 18, 2025 22:40
--- NOTE | 2025-01-19 14:19 | ECG ---
[facility] Test Date: 2025-01-14 Test Time: 20:05:50 Pat Name: DENA ROSALES Department: ED Room: 0221T A Gender: M Instrument Operator: PH : [phone] Requested By: SABRA MCKENNA Order Number: [id number] Reading MD: Pantera Mast Measurements Intervals [place] Rate: 134 P: 0 NM: 0 QRS: -45 QRSD: 76 T: 104 QT: 313 QTc: 468 Interpretive Statements Atrial fibrillation Left anterior fascicular block Anterior infarct, old Nonspecific repol abnormality, lateral leads Electronically Signed On 01-24-2025 21:39:50 PDT by Pantera Mast Please click the below link to view image of tracing.
== END 2025-01-18 16:02 | disposition home health service (06) | DRG 917 ==
LOC: ER 19:58 → OVERFLOW 22:31 → TELE-CENTR 01-16 21:52
PROVIDERS: ADMIT Hospitalist; ATTEND Hospitalist
DX: T40.601A Poisoning by unspecified narcotics, accidental (unintentional), initial encounter (principal); G92.8 Other toxic encephalopathy; I13.0 Hypertensive heart and chronic kidney disease with heart failure and stage 1 through stage 4 chronic kidney disease, or unspecified chronic kidney disease; I48.19 Other persistent atrial fibrillation; I50.32 Chronic diastolic (congestive) heart failure; Z68.41 Body mass index [BMI] 40.0-44.9, adult; I16.0 Hypertensive urgency; I25.10 Atherosclerotic heart disease of native coronary artery without angina pectoris; D72.829 Elevated white blood cell count, unspecified; G89.4 Chronic pain syndrome; E66.01 Morbid (severe) obesity due to excess calories; N40.0 Benign prostatic hyperplasia without lower urinary tract symptoms; I25.5 Ischemic cardiomyopathy; E78.5 Hyperlipidemia, unspecified; N18.9 Chronic kidney disease, unspecified; E11.22 Type 2 diabetes mellitus with diabetic chronic kidney disease; Z79.02 Long term (current) use of antithrombotics/antiplatelets; Z79.899 Other long term (current) drug therapy; Z95.5 Presence of coronary angioplasty implant and graft; Z79.4 Long term (current) use of insulin; Z79.01 Long term (current) use of anticoagulants; Z79.84 Long term (current) use of oral hypoglycemic drugs; Z86.73 Personal history of transient ischemic attack (TIA), and cerebral infarction without residual deficits; Y92.89 Other specified places as the place of occurrence of the external cause
CPT/HCPCS: 36415; 36600; 70450; 71045; 80048; 80053; 80307; 80320; 80329; 81001; 82805; 82962; 83605; 83735; 83880; 84439; 84443; 84484; 85025; 86803; 87040; 87340; 93005; 93306; 96365; 96375; 97110; 97116; 97163; 97530; G0378; J1815